=== PATIENT | male | born 1935 | race Caucasian/White ===

== ENCOUNTER 2017-01-24 07:35 | Emergency (ER) | payer MEDICARE, BC ==
[~2017-01-24] VITALS: Ht 180.3 cm; Wt 68.2 kg
[~2017-01-24 07:35] MED LIST: ATENOLOL25 MG OR; AUGMENTIN875TAB PO; CIPRO500 MG OR; CIPROFLOXACN500 MG PO; GOLYTEL1; GOLYTEL1 PO; HYDROCO/APAP1 T10 PO; INDOCIN50 MG/CAP PO; KEFLEX500 M1 PO; KEFLEX500 MG PO; LORTAB 5-325 MG1 TAB PO; NAPROSYN500 MG PO; NEOMYCIN500 MG PO; OCUVITE PO; PCE500 MG PO; PROBENECID/COLC1 TAB PO; PX ASPIRIN81 M1 PO; ROBITUSSIN AC10 ML PO; TAMSULOSIN0.4 MG PO; TENORMIN25 MG PO; TORADOL PO; ZITHROMAX250 MG PO; [UNRECOGNIZED DRUG - OTHER] PO
[2017-01-24 08:23] LABS: HEMATOCRIT 32.2 % (39.0-50.0); HEMOGLOBIN 10.8 g/dl (14.0-18.0); IMMATURE GRANULOCYTES 0.3 % (0.0-1.0); MEAN CELL VOLUME 88.7 fL CALC (80.0-100.0); MEAN CORPUSCULAR HGB 29.8 pG CALC (26.0-32.0); MEAN CORPUSCULAR HGB CONC 33.5 g/L CALC (32.0-36.0); NEUT# 9.18 thou/uL (1.82-7.42); RED BLOOD COUNT 3.63 mill/uL (4.70-6.10); RED CELL DISTRI WIDTH 13.2 % (11.5-15.5)
[2017-01-24 08:37] LABS: INFLUENZA A NONE DETECTED (NONE DETECT); INFLUENZA B NONE DETECTED (NONE DETECT)
[2017-01-24 08:41] LABS: ALBUMIN 3.7 g/dL (3.2-5.0); ALKALINE PHOSPHATASE 68 u/l (38-126); ANION GAP 15 (6-22 (CALC)); BILIRUBIN, TOTAL 1.2 mg/dL (0.0-1.4); BUN 16 mg/dL (8-23); BUN/CREATININE RATIO 13 (12-20 (CALC)); CALCIUM 8.3 mg/dL (8.4-10.2); CARBON DIOXIDE 25 mmol/l (22-30); CHLORIDE 90 mmol/l (95-108); CREATININE 1.2 mg/dL (0.7-1.3); GFR 58 ML/MIN (>=60 (CALC)); GFR FOR AFR.AMER. > 60 ML/MIN (>=60 (CALC)); GLUCOSE 117 mg/dL (82-115); POTASSIUM 3.8 mmol/l (3.5-5.1); SGOT/AST 26 u/l (19-48); SGPT/ALT 24 u/l (11-66); SODIUM 126 mmol/l (137-146); TOTAL PROTEIN 7.4 g/dL (6.3-8.2)
[2017-01-24 08:52] LABS: MYOGLOBIN 110 ng/mL (0 - 121)
[2017-01-24] MEDS ORDERED: ZITHROMAX250 MG PO (10:36)
[2017-01-24 10:49] VITALS: BP 119/53
== END 2017-01-24 11:04 | disposition home or self-care (01) ==
LOC: ED 07:35
PROVIDERS: Emergency Medicine
DX: R05 Cough (principal); R91.8 Other nonspecific abnormal finding of lung field; R09.81 Nasal congestion; R50.9 Fever, unspecified

== ENCOUNTER 2017-06-15 14:54 | Inpatient (IN) | payer MEDICARE, BC ==
[~2017-06-15] VITALS: Ht 180.3 cm; Wt 65.1 kg
[2017-06-15 16:13] LABS: URINE BILIRUBIN - DIPSTICK NEGATIVE (NEGATIVE); URINE BLOOD DIPSTICK SMALL (NEGATIVE); URINE CLARITY CLEAR; URINE COLOR YELLOW; URINE GLUCOSE - DIPSTICK NEGATIVE (NEGATIVE); URINE KETONE NEGATIVE (NEGATIVE); URINE PH 7.5 (4.5-8.0); URINE PROTEIN - DIPSTICK 30 mg/dL (NEG-TRACE); URINE UROBILINOGEN - DIPSTICK 0.2 E.U./dL (0.2)
[2017-06-15 16:16] LABS: URINE LEUK ESTERASE SMALL (NEGATIVE)
[2017-06-15 16:26] LABS: URINE NITRITE - DIPSTICK NEGATIVE (Negative)
[2017-06-15 16:27] LABS: URINE BACTERIA RARE hpf; URINE EPITHELIAL CELLS RARE EPI/hpf (0-FEW)
[2017-06-15 16:29] LABS: HEMATOCRIT 34.5 % (39.0-50.0); HEMOGLOBIN 11.5 g/dl (14.0-18.0); IMMATURE GRANULOCYTES 0.5 % (0.0-1.0); MEAN CELL VOLUME 89.6 fL CALC (80.0-100.0); MEAN CORPUSCULAR HGB 29.9 pG CALC (26.0-32.0); MEAN CORPUSCULAR HGB CONC 33.3 g/L CALC (32.0-36.0); NEUT# 19.75 thou/uL (1.82-7.42); RED BLOOD COUNT 3.85 mill/uL (4.70-6.10)
[2017-06-15 16:38] LABS: ALBUMIN 4.2 g/dL (3.2-5.0); ALKALINE PHOSPHATASE 83 u/l (38-126); ANION GAP 17 (6-22 (CALC)); BILIRUBIN, TOTAL 0.7 mg/dL (0.0-1.4); BUN 18 mg/dL (8-23); BUN/CREATININE RATIO 15 (12-20 (CALC)); CARBON DIOXIDE 28 mmol/l (22-30); CHLORIDE 95 mmol/l (95-108); CREATININE 1.2 mg/dL (0.7-1.3); GFR 58 ML/MIN (>=60 (CALC)); GFR FOR AFR.AMER. > 60 ML/MIN (>=60 (CALC)); GLUCOSE 111 mg/dL (82-115); POTASSIUM 3.8 mmol/l (3.5-5.1); SGOT/AST 23 u/l (19-48); SGPT/ALT 28 u/l (11-66); SODIUM 136 mmol/l (137-146)
[2017-06-15 19:10] LABS: HEMATOCRIT 32.7 % (39.0-50.0); HEMOGLOBIN 10.7 g/dl (14.0-18.0); IMMATURE GRANULOCYTES 0.6 % (0.0-1.0); MEAN CELL VOLUME 90.8 fL CALC (80.0-100.0); MEAN CORPUSCULAR HGB 29.7 pG CALC (26.0-32.0); MEAN CORPUSCULAR HGB CONC 32.7 g/L CALC (32.0-36.0); NEUT# 19.04 thou/uL (1.82-7.42); RED BLOOD COUNT 3.6 mill/uL (4.70-6.10)
[2017-06-15 19:29] LABS: ANION GAP 16 (6-22 (CALC)); BUN 17 mg/dL (8-23); BUN/CREATININE RATIO 17 (12-20 (CALC)); CALCIUM 8.2 mg/dL (8.4-10.2); CARBON DIOXIDE 23 mmol/l (22-30); CHLORIDE 99 mmol/l (95-108); GFR > 60 ML/MIN (>=60 (CALC)); GFR FOR AFR.AMER. > 60 ML/MIN (>=60 (CALC)); GLUCOSE 136 mg/dL (82-115); POTASSIUM 4.2 mmol/l (3.5-5.1); SODIUM 134 mmol/l (137-146)
[2017-06-15 22:00] VITALS: BP 96/49
[2017-06-16] VITALS (7 sets, daily range): BP systolic 101–129; BP diastolic 47–63
[2017-06-16 07:25] LABS: ANION GAP 17 (6-22 (CALC)); BUN 15 mg/dL (8-23); BUN/CREATININE RATIO 16 (12-20 (CALC)); CALCIUM 8.5 mg/dL (8.4-10.2); CARBON DIOXIDE 24 mmol/l (22-30); CHLORIDE 100 mmol/l (95-108); GFR > 60 ML/MIN (>=60 (CALC)); GFR FOR AFR.AMER. > 60 ML/MIN (>=60 (CALC)); GLUCOSE 88 mg/dL (82-115); POTASSIUM 4.1 mmol/l (3.5-5.1); SODIUM 137 mmol/l (137-146)
[2017-06-16 08:24] LABS: HEMATOCRIT 32.2 % (39.0-50.0); HEMOGLOBIN 10.7 g/dl (14.0-18.0); IMMATURE GRANULOCYTES 0.9 % (0.0-1.0); MEAN CELL VOLUME 89.2 fL CALC (80.0-100.0); MEAN CORPUSCULAR HGB 29.6 pG CALC (26.0-32.0); MEAN CORPUSCULAR HGB CONC 33.2 g/L CALC (32.0-36.0); NEUT# 21.81 thou/uL (1.82-7.42); RED BLOOD COUNT 3.61 mill/uL (4.70-6.10); RED CELL DISTRI WIDTH 13.2 % (11.5-15.5)
[2017-06-17 03:35] VITALS: BP 109/55
[2017-06-17 06:03] LABS: HEMATOCRIT 29.7 % (39.0-50.0); HEMOGLOBIN 9.8 g/dl (14.0-18.0); IMMATURE GRANULOCYTES 0.8 % (0.0-1.0); MEAN CELL VOLUME 90.5 fL CALC (80.0-100.0); MEAN CORPUSCULAR HGB 29.9 pG CALC (26.0-32.0); NEUT# 15.21 thou/uL (1.82-7.42); RED BLOOD COUNT 3.28 mill/uL (4.70-6.10); RED CELL DISTRI WIDTH 13.3 % (11.5-15.5)
[2017-06-17 06:14] LABS: ANION GAP 15 (6-22 (CALC)); BUN 12 mg/dL (8-23); BUN/CREATININE RATIO 13 (12-20 (CALC)); CALCIUM 8.2 mg/dL (8.4-10.2); CARBON DIOXIDE 24 mmol/l (22-30); CHLORIDE 102 mmol/l (95-108); GFR > 60 ML/MIN (>=60 (CALC)); GFR FOR AFR.AMER. > 60 ML/MIN (>=60 (CALC)); GLUCOSE 97 mg/dL (82-115); MAGNESIUM 1.9 mg/dL (1.6-2.3); SODIUM 137 mmol/l (137-146)
[2017-06-17 09:04] VITALS: BP 107/55
[2017-06-17 12:15] VITALS: BP 110/62
[2017-06-17 16:00] VITALS: BP 121/64
[2017-06-17 19:20] VITALS: BP 120/63
[2017-06-18 00:10] VITALS: BP 126/65
[2017-06-18 04:00] VITALS: BP 126/66
[2017-06-18 06:07] LABS: HEMATOCRIT 32.2 % (39.0-50.0); HEMOGLOBIN 10.5 g/dl (14.0-18.0); IMMATURE GRANULOCYTES 0.5 % (0.0-1.0); MEAN CELL VOLUME 91.2 fL CALC (80.0-100.0); MEAN CORPUSCULAR HGB 29.7 pG CALC (26.0-32.0); MEAN CORPUSCULAR HGB CONC 32.6 g/L CALC (32.0-36.0); NEUT# 9.34 thou/uL (1.82-7.42); RED BLOOD COUNT 3.53 mill/uL (4.70-6.10); RED CELL DISTRI WIDTH 13.4 % (11.5-15.5)
[2017-06-18 06:11] LABS: ALBUMIN 3.1 g/dL (3.2-5.0); ALKALINE PHOSPHATASE 67 u/l (38-126); ANION GAP 17 (6-22 (CALC)); BILIRUBIN, TOTAL 0.7 mg/dL (0.0-1.4); BUN 13 mg/dL (8-23); BUN/CREATININE RATIO 15 (12-20 (CALC)); CALCIUM 8.6 mg/dL (8.4-10.2); CARBON DIOXIDE 23 mmol/l (22-30); CHLORIDE 103 mmol/l (95-108); CREATININE 0.9 mg/dL (0.7-1.3); GFR > 60 ML/MIN (>=60 (CALC)); GFR FOR AFR.AMER. > 60 ML/MIN (>=60 (CALC)); GLUCOSE 86 mg/dL (82-115); SGOT/AST 14 u/l (19-48); SGPT/ALT 22 u/l (11-66); SODIUM 139 mmol/l (137-146); TOTAL PROTEIN 6.2 g/dL (6.3-8.2)
[2017-06-18 08:39] VITALS: BP 131/65
[2017-06-18 11:25] VITALS: BP 136/51
[2017-06-18] MEDS ORDERED: BACTRIM DS1 TAB PO (12:38)
[2017-06-18] MEDS ORDERED: ROBAXIN-750750 MG PO (12:43)
[2017-06-18] MEDS ORDERED: TRAMADOL HCL50 MG PO (12:43)
== END 2017-06-18 13:48 | disposition home or self-care (01) | DRG 872 ==
LOC: ED 14:54 → ED-I 16:55 → ED 17:30 → MS2 17:31
PROVIDERS: Emergency Medicine; Internal Medicine; Nurse Practitioner Family; ADMIT Internal Medicine; ATTEND Internal Medicine
DX: A41.9 Sepsis, unspecified organism (principal); N39.0 Urinary tract infection, site not specified; D64.9 Anemia, unspecified; E83.42 Hypomagnesemia; I12.9 Hypertensive chronic kidney disease with stage 1 through stage 4 chronic kidney disease, or unspecified chronic kidney disease; N18.9 Chronic kidney disease, unspecified; M10.9 Gout, unspecified; N40.0 Benign prostatic hyperplasia without lower urinary tract symptoms; M25.512 Pain in left shoulder; Z87.440 Personal history of urinary (tract) infections; Z87.442 Personal history of urinary calculi; Z85.038 Personal history of other malignant neoplasm of large intestine; Z90.49 Acquired absence of other specified parts of digestive tract
CPT/HCPCS: J0692; J1650

== ENCOUNTER 2017-10-10 14:30 | Emergency (ER) | payer MEDICARE, BC ==
[~2017-10-10] VITALS: Ht 180.3 cm; Wt 63.0 kg
[~2017-10-10 14:30] MED LIST changes: +BACTRIM DS1 TAB PO; +ROBAXIN-750750 MG PO; +TRAMADOL HCL50 MG PO
[2017-10-10 16:16] LABS: HEMATOCRIT 30.7 % (39.0-50.0); HEMOGLOBIN 10.3 g/dl (14.0-18.0); IMMATURE GRANULOCYTES 0.3 % (0.0-1.0); MEAN CORPUSCULAR HGB 29.2 pG CALC (26.0-32.0); MEAN CORPUSCULAR HGB CONC 33.6 g/L CALC (32.0-36.0); NEUT# 9.47 thou/uL (1.82-7.42); RED BLOOD COUNT 3.53 mill/uL (4.70-6.10); RED CELL DISTRI WIDTH 14.3 % (11.5-15.5)
[2017-10-10 16:21] LABS: INFLUENZA A NONE DETECTED (NONE DETECT); INFLUENZA B NONE DETECTED (NONE DETECT)
[2017-10-10 16:25] LABS: ALBUMIN 3.8 g/dL (3.2-5.0); ALKALINE PHOSPHATASE 72 u/l (38-126); ANION GAP 15 (6-22 (CALC)); BILIRUBIN, TOTAL 0.5 mg/dL (0.0-1.4); BUN 16 mg/dL (8-23); BUN/CREATININE RATIO 14 (12-20 (CALC)); CALCIUM 8.7 mg/dL (8.4-10.2); CARBON DIOXIDE 23 mmol/l (22-30); CHLORIDE 96 mmol/l (95-108); CREATININE 1.2 mg/dL (0.7-1.3); GFR 58 ML/MIN (>=60 (CALC)); GFR FOR AFR.AMER. > 60 ML/MIN (>=60 (CALC)); GLUCOSE 127 mg/dL (82-115); SGOT/AST 27 u/l (19-48); SGPT/ALT 23 u/l (11-66); SODIUM 130 mmol/l (137-146); TOTAL PROTEIN 7.2 g/dL (6.3-8.2)
[2017-10-10] MEDS ORDERED: KEFLEX500 M1 PO (17:34)
[2017-10-10] MEDS ORDERED: MEDDOSEPAK PO (17:34)
[2017-10-10 17:53] VITALS: BP 122/66
== END 2017-10-10 18:25 | disposition home or self-care (01) ==
LOC: ED 14:30
PROVIDERS: Emergency Medicine
DX: J20.9 Acute bronchitis, unspecified (principal); J44.0 Chronic obstructive pulmonary disease with (acute) lower respiratory infection; J44.1 Chronic obstructive pulmonary disease with (acute) exacerbation; Z91.19 Patient's noncompliance with other medical treatment and regimen; R05 Cough; R50.9 Fever, unspecified; I10 Essential (primary) hypertension; Z85.038 Personal history of other malignant neoplasm of large intestine

== ENCOUNTER 2019-03-18 09:15 | Emergency (ER) | payer MEDICARE, BC ==
[~2019-03-18] VITALS: Ht 177.8 cm; Wt 68.0 kg
[~2019-03-18 09:15] MED LIST changes: +CHILD ASA LS81 MG PO; +COLCHICINE0.6 M2 PO; +MEDDOSEPAK PO; +MOTRIN400 MG PO; +TENORMIN25 M1 PO
[2019-03-18] MEDS ORDERED: XARELTO10 MG PO (09:39)
[2019-03-18 10:20] LABS: IMMATURE GRANULOCYTES 0.6 % (0.0-5.0); MEAN CELL VOLUME 87.5 fL CALC (80.0-100.0); MEAN CORPUSCULAR HGB 26.9 pG CALC (26.0-32.0); MEAN CORPUSCULAR HGB CONC 30.8 g/L CALC (32.0-36.0); NEUT# 6.76 thou/uL (1.82-7.42); RED BLOOD COUNT 2.97 mill/uL (4.70-6.10); RED CELL DISTRI WIDTH 15.1 % (11.5-15.5)
[2019-03-18 10:37] LABS: ALBUMIN 3.3 g/dL (3.2-5.0); ALKALINE PHOSPHATASE 70 u/l (38-126); ANION GAP 13 (6-22 (CALC)); BILIRUBIN, TOTAL 0.5 mg/dL (0.0-1.4); BUN 29 mg/dL (8-23); BUN/CREATININE RATIO 32 (12-20 (CALC)); C-REACTIVE PROTEIN 2.3 mg/dL (0-0.9); CARBON DIOXIDE 28 mmol/l (22-30); CHLORIDE 98 mmol/l (95-108); CREATININE 0.9 mg/dL (0.7-1.3); GFR > 60 ML/MIN (>=60 (CALC)); GFR FOR AFR.AMER. > 60 ML/MIN (>=60 (CALC)); POTASSIUM 4.6 mmol/l (3.5-5.1); SGOT/AST 22 u/l (19-48); SODIUM 135 mmol/l (137-146); TOTAL PROTEIN 6.5 g/dL (6.3-8.2)
[2019-03-18 15:55] VITALS: BP 119/60
== END 2019-03-18 16:14 | disposition home or self-care (01) ==
LOC: ED 09:15
PROVIDERS: Emergency Medicine
DX: L03.116 Cellulitis of left lower limb (principal); I10 Essential (primary) hypertension; M25.50 Pain in unspecified joint; Z79.01 Long term (current) use of anticoagulants; Z79.52 Long term (current) use of systemic steroids; M79.605 Pain in left leg; M79.89 Other specified soft tissue disorders

== ENCOUNTER 2019-06-09 21:22 | Emergency (ER) | payer MEDICARE, BC ==
[~2019-06-09] VITALS: Ht 180.3 cm; Wt 80.0 kg
[~2019-06-09 21:22] MED LIST changes: +XARELTO10 MG PO
[2019-06-09] MEDS ORDERED: ASPIRIN 8181 MG PO (22:14)
[2019-06-09] MEDS ORDERED: MULTI COMPLETE PO (22:15)
[2019-06-09] MEDS ORDERED: NATURAL LUTEIN20 MG PO (22:15)
[2019-06-09 22:16] LABS: BASO% 0 % (0-3); EOS% 1 % (0-8); HEMATOCRIT 26.5 % (39.0-50.0); HEMOGLOBIN 8.5 g/dl (14.0-18.0); IMMATURE GRANULOCYTES 0.5 % (0.0-5.0); LYMPH% 9 % (15-41); MEAN CELL VOLUME 86.3 fL CALC (80.0-100.0); MEAN CORPUSCULAR HGB 27.7 pG CALC (26.0-32.0); MEAN CORPUSCULAR HGB CONC 32.1 g/L CALC (32.0-36.0); MONO% 5 % (2-13); NEUT# 11.54 thou/uL (1.82-7.42); NEUT% 84 % (42-76); PLATELET COUNT 240 thou/uL (130-400); RED BLOOD COUNT 3.07 mill/uL (4.70-6.10); RED CELL DISTRI WIDTH 15.1 % (11.5-15.5)
[2019-06-09 22:33] LABS: BUN 21 mg/dL (8-23); BUN/CREATININE RATIO 23 (12-20 (CALC)); CARBON DIOXIDE 31 mmol/l (22-30); CREATININE 0.9 mg/dL (0.7-1.3); GFR > 60 ML/MIN (>=60 (CALC)); GFR FOR AFR.AMER. > 60 ML/MIN (>=60 (CALC)); POTASSIUM 4.4 mmol/l (3.5-5.1); SODIUM 134 mmol/l (137-146)
[2019-06-09 22:41] LABS: ANION GAP 14 (6-22 (CALC)); CHLORIDE 93 mmol/l (95-108)
[2019-06-09] MEDS ORDERED: VOLTAREN - GENE75 MG PO (23:25)
[2019-06-09] MEDS ORDERED: BACTRIM DS1 TAB PO (23:25)
[2019-06-09 23:40] VITALS: BP 131/84
== END 2019-06-09 23:40 | disposition home or self-care (01) ==
LOC: ED 21:22
PROVIDERS: Family Medicine
DX: L03.113 Cellulitis of right upper limb (principal); I10 Essential (primary) hypertension; M10.9 Gout, unspecified

== ENCOUNTER 2019-07-16 08:48 | Emergency (ER) | payer MEDICARE, BC ==
[~2019-07-16] VITALS: Ht 180.3 cm; Wt 62.0 kg
[~2019-07-16 08:48] MED LIST changes: +ASPIRIN 8181 MG PO; +MULTI COMPLETE PO; +NATURAL LUTEIN20 MG PO; +VOLTAREN - GENE75 MG PO
[2019-07-16] MEDS ORDERED: TRAMADOL HCL50 MG PO (10:33)
[2019-07-16] MEDS ORDERED: VOLTAREN - GENE75 MG PO (10:33)
[2019-07-16 10:45] VITALS: BP 122/63
== END 2019-07-16 10:45 | disposition home or self-care (01) ==
LOC: ED 08:48
DX: M47.812 Spondylosis without myelopathy or radiculopathy, cervical region (principal); I10 Essential (primary) hypertension

== ENCOUNTER 2019-07-23 11:48 | Emergency (ER) | payer MEDICARE, BC ==
[~2019-07-23] VITALS: Ht 180.3 cm; Wt 59.1 kg
[2019-07-23 13:33] LABS: URINE BILIRUBIN - DIPSTICK NEGATIVE (NEGATIVE); URINE BLOOD DIPSTICK SMALL (NEGATIVE); URINE COLOR YELLOW; URINE GLUCOSE - DIPSTICK NEGATIVE (NEGATIVE); URINE KETONE NEGATIVE (NEGATIVE); URINE NITRITE - DIPSTICK NEGATIVE (Negative); URINE PH 6.5 (4.5-8.0); URINE PROTEIN - DIPSTICK NEGATIVE (NEG-TRACE); URINE SPECIFIC GRAVITY 1.015
[2019-07-23 13:40] LABS: URINE LEUK ESTERASE MODERATE (NEGATIVE)
[2019-07-23] MEDS ORDERED: FLEXERIL5 MG PO (14:00)
[2019-07-23] MEDS ORDERED: KEFLEX500 M1 PO (14:00)
[2019-07-23 15:05] VITALS: BP 124/62
[2019-07-24] MEDS ORDERED: LORTAB 5/3255 MG PO (18:04)
[2019-07-24] MEDS ORDERED: GABAPENTIN100 MG PO (18:04)
[2019-07-24] MEDS ORDERED: MIRALAX3350 N1 PO (18:04)
== END 2019-07-23 15:05 | disposition home or self-care (01) ==
LOC: ED 11:48
DX: M47.812 Spondylosis without myelopathy or radiculopathy, cervical region (principal); N39.0 Urinary tract infection, site not specified; I10 Essential (primary) hypertension; B96.1 Klebsiella pneumoniae [K. pneumoniae] as the cause of diseases classified elsewhere; Z85.038 Personal history of other malignant neoplasm of large intestine; Z87.442 Personal history of urinary calculi

== ENCOUNTER 2019-07-24 17:31 | Emergency (ER) | payer MEDICARE, BC ==
[~2019-07-24] VITALS: Ht 180.3 cm; Wt 81.8 kg
[~2019-07-24 17:31] MED LIST changes: +FLEXERIL5 MG PO
[2019-07-24] MEDS ORDERED: MIRALAX3350 N1 PO (18:04)
[2019-07-24] MEDS ORDERED: LORTAB 5/3255 MG PO (18:04)
[2019-07-24] MEDS ORDERED: GABAPENTIN100 MG PO (18:04)
[2019-07-24 19:00] VITALS: BP 140/65
== END 2019-07-24 19:15 | disposition home or self-care (01) ==
LOC: ED 17:31
DX: M47.812 Spondylosis without myelopathy or radiculopathy, cervical region (principal); I10 Essential (primary) hypertension

== ENCOUNTER 2019-08-28 15:56 | Emergency (ER) | payer MEDICARE, BC ==
[~2019-08-28 15:56] MED LIST changes: +GABAPENTIN100 MG PO; +LORTAB 5/3255 MG PO; +MIRALAX3350 N1 PO; +TRAZODONE HCL50 MG PO
== END 2019-08-28 16:15 | disposition left against medical advice (07) ==
LOC: ED 15:56 → LWOBS 16:15
DX: Z53.21 Procedure and treatment not carried out due to patient leaving prior to being seen by health care provider (principal)

== ENCOUNTER 2019-11-08 | Emergency (ER) | payer MEDICARE, BC ==
[2019-11-08] MEDS ORDERED: PREDNISONE5 MG PO (16:54)
[2019-11-08] MEDS ORDERED: DESYREL50 MG PO (16:55)
== END 2019-11-08 18:00 | disposition home or self-care (01) ==
PROC: 3E1B78Z Irrigation of Ear using Irrigating Substance, Via Natural or Artificial Opening (ICD-10-PCS; principal; 2019-11-08)
PROC: 3E1B78Z Irrigation of Ear using Irrigating Substance, Via Natural or Artificial Opening (ICD-10-PCS; 2019-11-08)
DX: H61.23 Impacted cerumen, bilateral (principal); I10 Essential (primary) hypertension

== ENCOUNTER 2020-10-15 12:53 | Observation (INO) | payer MEDICARE, BC ==
[~2020-10-15] VITALS: Ht 177.8 cm; Wt 110.0 kg
[~2020-10-15 12:53] MED LIST changes: +DESYREL50 MG PO; +PREDNISONE5 MG PO
[2020-10-15 14:24] LABS: HEMATOCRIT 34.5 % (39.0-50.0); HEMOGLOBIN 11.1 g/dl (14.0-18.0); IMMATURE GRANULOCYTES 0.6 % (0.0-5.0); MEAN CELL VOLUME 89.6 fL CALC (80.0-100.0); MEAN CORPUSCULAR HGB 28.8 pG CALC (26.0-32.0); MEAN CORPUSCULAR HGB CONC 32.2 g/dL CAL (32.0-36.0); NEUT# 20.37 thou/uL (1.82-7.42); RED BLOOD COUNT 3.85 mill/uL (4.70-6.10); RED CELL DISTRI WIDTH 13.2 % (11.5-15.5)
[2020-10-15 14:37] LABS: ALBUMIN 3.8 g/dL (3.2-5.0); ALKALINE PHOSPHATASE 87 u/l (38-126); AMYLASE 45 u/l (30-110); ANION GAP 10 (6-22 (CALC)); BUN 17 mg/dL (8-23); BUN/CREATININE RATIO 16 (12-20 (CALC)); CARBON DIOXIDE 26 mmol/l (22-30); CHLORIDE 98 mmol/l (95-108); GFR > 60 ML/MIN (>=60 (CALC)); GFR FOR AFR.AMER. > 60 ML/MIN (>=60 (CALC)); LIPASE 29 u/l (23-300); MAGNESIUM 1.6 mg/dL (1.6-2.3); SGOT/AST 23 u/l (19-48); SODIUM 130 mmol/l (137-146); TOTAL PROTEIN 6.9 g/dL (6.3-8.2)
[2020-10-15 14:39] LABS: ACT PARTIAL THROMBO TIME 25.1 SECONDS (20.0-32.5); INTERNATIONAL NORMALIZED RATIO 1.1 RATIO (0.7-1.3); PROTHROMBIN TIME 10.8 SECONDS (9.0-12.5)
[2020-10-15 14:41] LABS: D-DIMER 3.55 mg/L (0.19-0.60)
[2020-10-15 14:52] LABS: BILIRUBIN, TOTAL 0.8 mg/dL (0.0-1.4)
[2020-10-15 15:56] LABS: URINE BILIRUBIN - DIPSTICK NEGATIVE (NEGATIVE); URINE BLOOD DIPSTICK SMALL (NEGATIVE); URINE COLOR YELLOW; URINE GLUCOSE - DIPSTICK NEGATIVE (NEGATIVE); URINE KETONE NEGATIVE (NEGATIVE); URINE LEUK ESTERASE TRACE (NEGATIVE); URINE NITRITE - DIPSTICK NEGATIVE (Negative); URINE PROTEIN - DIPSTICK TRACE mg/dL (NEG-TRACE); URINE SPECIFIC GRAVITY 1.015
[2020-10-15 16:12] LABS: URINE RBC 0-2 RBC/hpf (0-5)
[2020-10-15 19:45] VITALS: BP 130/65
[2020-10-16] VITALS (7 sets, daily range): BP systolic 101–119; BP diastolic 46–62
[2020-10-16 07:12] LABS: HEMATOCRIT 31.2 % (39.0-50.0); HEMOGLOBIN 9.9 g/dl (14.0-18.0); IMMATURE GRANULOCYTES 0.4 % (0.0-5.0); MEAN CORPUSCULAR HGB 29.2 pG CALC (26.0-32.0); MEAN CORPUSCULAR HGB CONC 31.7 g/dL CAL (32.0-36.0); NEUT# 11.97 thou/uL (1.82-7.42); RED BLOOD COUNT 3.39 mill/uL (4.70-6.10); RED CELL DISTRI WIDTH 13.6 % (11.5-15.5)
[2020-10-16 07:30] LABS: ALKALINE PHOSPHATASE 69 u/l (38-126); BILIRUBIN, TOTAL 0.8 mg/dL (0.0-1.4); BUN 17 mg/dL (8-23); BUN/CREATININE RATIO 18 (12-20 (CALC)); CALCULATED LDLCHOLESTEROL 67 mg/dL (62-129 (CALC)); CHLORIDE 105 mmol/l (95-108); CHOLESTEROL HDL RATIO 3.5 (<4.4 (CALC)); GFR > 60 ML/MIN (>=60 (CALC)); GFR FOR AFR.AMER. > 60 ML/MIN (>=60 (CALC)); HDL CHOLESTEROL 33 mg/dL (>=40); MAGNESIUM 1.7 mg/dL (1.6-2.3); POTASSIUM 3.6 mmol/l (3.5-5.1); SGOT/AST 20 u/l (19-48); SODIUM 134 mmol/l (137-146); TOTAL CHOLESTEROL 115 mg/dl (0-199); TOTAL PROTEIN 5.6 g/dL (6.3-8.2); TOTAL TRIGLYCERIDES 72 mg/dl (30-149); VLDL CHOLESTROL 14 mg/dl (0-38 (CALC))
[2020-10-16 07:31] LABS: ALBUMIN 2.9 g/dL (3.2-5.0); ANION GAP 13 (6-22 (CALC)); CARBON DIOXIDE 20 mmol/l (22-30)
[2020-10-16] MEDS ORDERED: KEFLEX500 MG PO (13:05)
== END 2020-10-16 14:20 | disposition home health service (06) ==
LOC: ED 12:53 → ED-I 16:50 → ED 17:15 → MS2 17:16 → ED 17:26 → ED-I 17:26 → ED 17:52 → ED-I 17:52 → MS2 10-16 14:20
PROVIDERS: Nurse Practitioner; ADMIT Internal Medicine; ATTEND Internal Medicine
DX: I95.9 Hypotension, unspecified (principal); S00.81XA Abrasion of other part of head, initial encounter; N39.0 Urinary tract infection, site not specified; E87.1 Hypo-osmolality and hyponatremia; I10 Essential (primary) hypertension; M10.9 Gout, unspecified; M54.2 Cervicalgia; G89.29 Other chronic pain; M35.3 Polymyalgia rheumatica; W18.12XA Fall from or off toilet with subsequent striking against object, initial encounter; Y92.002 Bathroom of unspecified non-institutional (private) residence as the place of occurrence of the external cause; Z90.49 Acquired absence of other specified parts of digestive tract; Z87.440 Personal history of urinary (tract) infections; Z85.038 Personal history of other malignant neoplasm of large intestine; Z20.822 Contact with and (suspected) exposure to COVID-19
CPT/HCPCS: J1650; Q9967

== ENCOUNTER 2022-06-23 16:19 | Inpatient (IN) | payer MEDICARE, BC ==
[~2022-06-23] VITALS: Ht 180.3 cm; Wt 62.0 kg
--- NOTE | 2022-06-23 16:36 | NUR ---
PT IN ROOM VIA WC
[2022-06-23 17:20] LABS: ALBUMIN 3.4 g/dL (3.2-5.0); ALKALINE PHOSPHATASE 84 u/l (38-126); BUN 10 mg/dL (8-23); BUN/CREATININE RATIO 13 (12-20 (CALC)); CARBON DIOXIDE 25 mmol/l (22-30); CHLORIDE 85 mmol/l (95-108); CREATININE 0.7 mg/dL (0.7-1.3); GFR FOR AFR.AMER. > 60 ML/MIN (>=60 (CALC)); GFR OTHER RACES > 60 ML/MIN (>=60 (CALC)); HEMATOCRIT 29.9 % (39.0-50.0); HEMOGLOBIN 10.4 g/dl (14.0-18.0); IMMATURE GRANULOCYTES 0.6 % (0.0-5.0); LIPASE 45 u/l (23-300); MEAN CELL VOLUME 84.2 fL CALC (80.0-100.0); MEAN CORPUSCULAR HGB 29.3 pG CALC (26.0-32.0); MEAN CORPUSCULAR HGB CONC 34.8 g/dL CAL (32.0-36.0); NEUT# 7.21 thou/uL (1.82-7.42); POTASSIUM 4.2 mmol/l (3.5-5.1); RED BLOOD COUNT 3.55 mill/uL (4.70-6.10); RED CELL DISTRI WIDTH 12.7 % (11.5-15.5); SGOT/AST 21 u/l (19-48)
[2022-06-23 17:23] LABS: ANION GAP 12 (6-22 (CALC)); BILIRUBIN, TOTAL 0.7 mg/dL (0.0-1.4); SODIUM 118 mmol/l (137-146)
--- NOTE | 2022-06-23 17:36 | NUR ---
PER DR. VUONG, DO NOT INFUSE LITER OF 0.9% NS A BOLUS. PER DR. VUONG INFUSE 500 ML OF 1000 ML OF NS 0.9% BOLUS THEN THE REMAINDER 500 ML 50 ML/HR. WILL NOT PULL ANOTHER BAG OF NS 0.9%.
[2022-06-23 17:37] LABS: URINE BILIRUBIN - DIPSTICK NEGATIVE (NEGATIVE); URINE BLOOD DIPSTICK SMALL (NEGATIVE); URINE COLOR YELLOW; URINE GLUCOSE - DIPSTICK NEGATIVE (NEGATIVE); URINE KETONE NEGATIVE (NEGATIVE); URINE LEUK ESTERASE NEGATIVE (NEGATIVE); URINE PROTEIN - DIPSTICK NEGATIVE (NEG-TRACE); URINE SPECIFIC GRAVITY <=1.005; URINE UROBILINOGEN - DIPSTICK 0.2 E.U./dL (0.2)
[2022-06-23 17:44] LABS: URINE NITRITE - DIPSTICK NEGATIVE (Negative)
[2022-06-23 17:47] LABS: URINE MUCUS RARE hpf (NONE-FEW); URINE WBC 0-2 WBC/hpf (0-5)
--- NOTE | 2022-06-23 21:45 | NUR ---
PATIENT ADMITTED TO [facility] VIA STRETCHER TO ROOM 283. PATIENT AMBULATED SELF TO ROOM BED. ASSESSMENT COMPLETE. PATIENT ALERT AND ORIENTED. ABLE TO MAKE NEEDS KNOWN.ORIENTED TO ROOM, CALL LIGHT AND SURROUNDINGS. URINAL NEAR PATIENT. FRESH ICE WATER AT BEDSIDE. BED IN LOW POSITION. CALL LIGHT IN REACH.
[2022-06-23 21:46] VITALS: BP 129/69
[2022-06-24] VITALS (7 sets, daily range): BP systolic 108–132; BP diastolic 54–64
--- NOTE | 2022-06-24 01:00 | NUR ---
PATIENT REMAINS RESTING IN BED. REMAINS ALERT. ABLE TO MAKE NEEDS KNOWN. URINAL REMAINS IN PATIENT REACH. PATIENT HAS BEEN VOIDING THROUGHOUT SHIFT. BED REMAINS IN LOW POSITION. CALL WHITMORE IN REACH.
--- NOTE | 2022-06-24 10:47 | NUR ---
PT IS SITTING UP IN BED WITH NO DISTRESS NOTED. GAVE KEYS TO HIS SON.AND THEY CALLED HIM TO NOTIFY OF THE REASON FOR TAKING THE KEYS.VERBALIZED UNDERSTANDING.
--- NOTE | 2022-06-24 12:30 | NUR ---
PT IS RELAXING IN BED WITH NO DISTRESS NOTED. IV SITE IS FREE FROM REDNESS OR EDEMA.
[2022-06-24 12:43] LABS: ANION GAP 9 (6-22 (CALC)); BUN 12 mg/dL (8-23); BUN/CREATININE RATIO 18 (12-20 (CALC)); CARBON DIOXIDE 28 mmol/l (22-30); CHLORIDE 91 mmol/l (95-108); CREATININE 0.7 mg/dL (0.7-1.3); GFR FOR AFR.AMER. > 60 ML/MIN (>=60 (CALC)); GFR OTHER RACES > 60 ML/MIN (>=60 (CALC)); MAGNESIUM 1.5 mg/dL (1.6-2.3); POTASSIUM 4.1 mmol/l (3.5-5.1); SODIUM 124 mmol/l (137-146)
--- NOTE | 2022-06-24 16:25 | NUR ---
PT CONTINUES TO RELAX WITH NO DISTRESS NOTED. IV SITE IS FREE FROM REDNESS OR EDEMA. URINE IS GETTING BETTER HAD A FEW CLOTS. CONTINUE TO OBSERVE AND MONITOR.
--- NOTE | 2022-06-24 19:12 | NUR ---
CALLED DR BRADSHAW ABOUT CONSULTATION.
--- NOTE | 2022-06-24 20:10 | NUR ---
PT IN BED RESTING WATCHING TV. NO S/S OF DISTRESS NOTED. DENIES PAIN AT THIS TIME. ASSESMENT COMPLETED. PT HAS A 20G ON RFA INFUSING NORMAL SALINE AT 100 MLS PER HR. PT A&O X3 ABLE TO MAKE NEEDS KNOW.CALL LIGHT IN REACH AND BED IN LOWEST POSITION. CONTINUE TO MONITOR.
--- NOTE | 2022-06-25 00:50 | NUR ---
PT IN BED RESTING WITH EYES CLOSED BREATHING EVEN AND UNLABORED, NO S/S OF DISTRESS NOTED. CALL LIGHT IN REACH AND BED IN LOWEST POSITION. CONTINUE TO MONITOR
[2022-06-25 03:49] VITALS: BP 123/57
--- NOTE | 2022-06-25 04:26 | NUR ---
PT IN BED LAB AT BED SIDE. PT DENIE PAIN OR DISCOMFORT. NO S/ OF DISTRESS NOTED. CALL LIGHT IN REACH AND BED IN LOWEST POSITION.
[2022-06-25 04:58] LABS: ALBUMIN 3.5 g/dL (3.2-5.0); BUN 11 mg/dL (8-23); CARBON DIOXIDE 25 mmol/l (22-30); CHLORIDE 95 mmol/l (95-108); CREATININE 0.7 mg/dL (0.7-1.3); GFR FOR AFR.AMER. > 60 ML/MIN (>=60 (CALC)); GFR OTHER RACES > 60 ML/MIN (>=60 (CALC)); SODIUM 126 mmol/l (137-146)
[2022-06-25 06:02] VITALS: BP 134/62
--- NOTE | 2022-06-25 07:45 | NUR ---
ASSESSMENT IS COMPLETED: HR IS RG,PULSES ARE STRONG X4,A BD IS SOFT WITH ACTIVE BS. NO DISTRESS NOTED. URINE IS CLEAR YELLOW NO CLOTS CONTINUE TO OSBERVE AND MONITOR.
[2022-06-25 11:23] VITALS: BP 127/67
--- NOTE | 2022-06-25 11:30 | NUR ---
FLU SHOT GIVEN IN R ARM.
[2022-06-25 15:29] VITALS: BP 143/66
--- NOTE | 2022-06-25 16:15 | NUR ---
PT IS RELAXING IN BED
[2022-06-25 19:25] VITALS: BP 133/63
--- NOTE | 2022-06-25 20:45 | NUR ---
PT IN BED WATCHING TV NO S/S OF DISTRESS NOTED. DENIES PAIN OFR DISCOFORT AT THIS TIME. ASEMENT COMPLETED AT THIS TIME. PT HAS A 20G IV TO 20 RFA PATEMT AMD FLUSHES WELL. CALL LIGHT IN REACH AND BE DIN LOWEST POSITION.
--- NOTE | 2022-06-26 | NUR ---
PT IN BED RESTING WITH EYES CLOSED BRATHING AND UNLAVORED NO S/S OF DISTRESS NOED. CALL LIGHT IN REACH AND BED IN LKOWEST POSITION.
[2022-06-26 02:10] LABS: URINE BILIRUBIN - DIPSTICK NEGATIVE (NEGATIVE); URINE BLOOD DIPSTICK SMALL (NEGATIVE); URINE COLOR YELLOW; URINE GLUCOSE - DIPSTICK NEGATIVE (NEGATIVE); URINE KETONE NEGATIVE (NEGATIVE); URINE PH 6.5 (4.5-8.0); URINE PROTEIN - DIPSTICK NEGATIVE (NEG-TRACE); URINE SPECIFIC GRAVITY <=1.005; URINE UROBILINOGEN - DIPSTICK 0.2 E.U./dL (0.2)
[2022-06-26 02:26] LABS: URINE LEUK ESTERASE NEGATIVE (NEGATIVE); URINE NITRITE - DIPSTICK NEGATIVE (Negative)
[2022-06-26 02:27] LABS: URINE WBC 0-2 WBC/hpf (0-5)
[2022-06-26 02:28] LABS: URINE BACTERIA FEW hpf; URINE EPITHELIAL CELLS FEW EPI/hpf (0-FEW)
[2022-06-26 04:12] VITALS: BP 125/69
[2022-06-26 04:20] VITALS: BP 133/62
--- NOTE | 2022-06-26 04:41 | NUR ---
PT IN BED RESTING WITH EYES CLOSED BREATHING EVEN AND UNLABORED. NO S/S OF DISTRESS NOTED
[2022-06-26 06:09] VITALS: BP 120/68
[2022-06-26 06:54] LABS: ALBUMIN 3.3 g/dL (3.2-5.0); BUN 11 mg/dL (8-23); CARBON DIOXIDE 23 mmol/l (22-30); CHLORIDE 94 mmol/l (95-108); CREATININE 0.8 mg/dL (0.7-1.3); GFR FOR AFR.AMER. > 60 ML/MIN (>=60 (CALC)); GFR OTHER RACES > 60 ML/MIN (>=60 (CALC)); POTASSIUM 4.2 mmol/l (3.5-5.1); SODIUM 126 mmol/l (137-146)
[2022-06-26 11:24] VITALS: BP 132/69
[2022-06-26 15:17] VITALS: BP 134/59
[2022-06-26 18:40] VITALS: BP 142/70
[2022-06-27 03:33] VITALS: BP 139/60
[2022-06-27 05:29] LABS: ALBUMIN 3.3 g/dL (3.2-5.0); BUN 12 mg/dL (8-23); CARBON DIOXIDE 25 mmol/l (22-30); CHLORIDE 90 mmol/l (95-108); CREATININE 0.8 mg/dL (0.7-1.3); GFR FOR AFR.AMER. > 60 ML/MIN (>=60 (CALC)); GFR OTHER RACES > 60 ML/MIN (>=60 (CALC)); POTASSIUM 3.7 mmol/l (3.5-5.1); SODIUM 127 mmol/l (137-146)
[2022-06-27 07:49] VITALS: BP 145/68
--- NOTE | 2022-06-27 10:32 | NUR ---
PT RESTING IN HIGH FOWLERS POSITION. A/OX3 ASSESSMENT AND VS COMPLETE. PT DENIES BM . TO BE MEDICATED PER EMAR. IV SITE NOTED TO RFA. PT ON TELE.PT DENIES ADDITIONAL NEEDS AT THE TOME ALL SAFETY PRECAUTIONS IN PLACE .-
--- NOTE | 2022-06-27 13:13 | NUR ---
PT C/O NO BM YET PROVIDER ORDER FOR SUPPOSITORY TO BE ADMINISTERED.PER EMAR ONCE PT IS READY .
--- NOTE | 2022-06-27 13:43 | NUR ---
SUPPOSITORY ADMINISTERED. PT TOLERATED WELL.
--- NOTE | 2022-06-27 15:10 | NUR ---
PT BLADDER SCAN 121 PT MEDICATED WITH FLOMAX.
--- NOTE | 2022-06-27 15:15 | NUR ---
PT OUTPUT 120.
--- NOTE | 2022-06-27 15:55 | NUR ---
PT RESTING IN HIGH FOWLERS POSITION. DENIES ADDITIONAL NEEDS AT THE MOMENT ALL SAFETY PRECAUTIONS IN PLACE.
[2022-06-27 16:01] VITALS: BP 142/65
[2022-06-27 19:09] VITALS: BP 129/67
[2022-06-28 04:20] VITALS: BP 136/63
[2022-06-28 06:01] LABS: HEMOGLOBIN 11.1 g/dl (14.0-18.0); IMMATURE GRANULOCYTES 0.4 % (0.0-5.0); MEAN CORPUSCULAR HGB 29.6 pG CALC (26.0-32.0); MEAN CORPUSCULAR HGB CONC 33.6 g/dL CAL (32.0-36.0); NEUT# 4.63 thou/uL (1.82-7.42); RED BLOOD COUNT 3.75 mill/uL (4.70-6.10); RED CELL DISTRI WIDTH 13.1 % (11.5-15.5)
[2022-06-28 06:20] LABS: ALBUMIN 3.9 g/dL (3.2-5.0); ALKALINE PHOSPHATASE 82 u/l (38-126); AMYLASE 57 u/l (30-110); ANION GAP 16 (6-22 (CALC)); BILIRUBIN, TOTAL 0.6 mg/dL (0.0-1.4); BUN 11 mg/dL (8-23); BUN/CREATININE RATIO 13 (12-20 (CALC)); CARBON DIOXIDE 25 mmol/l (22-30); CHLORIDE 88 mmol/l (95-108); CREATININE 0.8 mg/dL (0.7-1.3); GFR FOR AFR.AMER. > 60 ML/MIN (>=60 (CALC)); GFR OTHER RACES > 60 ML/MIN (>=60 (CALC)); LIPASE 51 u/l (23-300); MAGNESIUM 1.8 mg/dL (1.6-2.3); POTASSIUM 4.2 mmol/l (3.5-5.1); SGOT/AST 28 u/l (19-48); SODIUM 126 mmol/l (137-146); TOTAL PROTEIN 6.6 g/dL (6.3-8.2)
[2022-06-28 07:00] VITALS: BP 138/77
--- NOTE | 2022-06-28 07:39 | NUR ---
PT A/O PT C/O PRESSURE IN BLADDER. BLADDER SCANNED 236ML. PT TO BE STRAIGHT CATHED. PT INDICATED UNDERSTANDING. PT DENIES ADDITIONAL NEEDS AT THE TIME ALL SAFETY PRECAUTIONS IN PLACE CALL LIGHT IN REACH.
--- NOTE | 2022-06-28 08:18 | NUR ---
PTURINATION OUTPUT 200. PT NO NEED FOR STRAIGHT CATH. PT TOLERATED MEDICATIONS WELL.
--- NOTE | 2022-06-28 12:55 | NUR ---
PT HAS BEEN URINATING FINE DURING THE DAY AID DOCUMENTING OUTPUTS. PT STATED URGE TO URINATE HAVING TROUBLE. PT BLADDER SCANNED 167 . PT STATES WILL TRY TO URINATE AGAIN WHILE STANDING UP AFTER LUNCH.
[2022-06-28 15:00] VITALS: BP 120/65
--- NOTE | 2022-06-28 16:12 | NUR ---
PT DENIES ANY ADDITIONAL NEEDS AT THE TIME SAFETY PRECAUTIONS IN PLACE.
[2022-06-28 19:06] VITALS: BP 123/62
[2022-06-29 04:10] VITALS: BP 114/60
[2022-06-29 06:15] LABS: ALBUMIN 3.3 g/dL (3.2-5.0); BUN 10 mg/dL (8-23); CARBON DIOXIDE 27 mmol/l (22-30); CHLORIDE 88 mmol/l (95-108); CREATININE 0.9 mg/dL (0.7-1.3); GFR FOR AFR.AMER. > 60 ML/MIN (>=60 (CALC)); GFR OTHER RACES > 60 ML/MIN (>=60 (CALC)); POTASSIUM 4.2 mmol/l (3.5-5.1); SODIUM 125 mmol/l (137-146)
[2022-06-29 06:36] VITALS: BP 124/54
[2022-06-29 07:03] VITALS: BP 125/72
--- NOTE | 2022-06-29 08:03 | NUR ---
RECIEVED REPORT. PT A/OX3. RESPIRATIONS EVEN AND UNLABORED ON ROOM AIR. LUNG SOUNDS CLEAR. HEART RHYTHM NORMAL. BOWEL SOUNDS ACTIVE. #20G RFA PATENT. SKIN INTACT. PT C/O OF BLADDER DISCOMFORT, BLADDER SCAN COMPLETED RESULTING IN 176. STRIAGHT CATH TO BE COMPLETED. FRESH COFFE PROVIDED. PT DENIES OF ANY ADDITIONAL NEEDS AT THIS TIME. ALL SAFTEY PRECAUTIONSA RE IN PLACE WITH CALL LIGHT IN REACH
--- NOTE | 2022-06-29 09:15 | NUR ---
SALES DEVELOPMENT DIRECTOR INFORMED THAT PT WAS ABLE TO VOID. BLADDER SCAMN COMPLETED AT THIS TIME RESULTING IN 74. PT STATES PRESSURE IS NO LONGER THERE. MORNING MEDS ADMINISTERED. PT TOLERATED WELL WITH APPLE SAUCE
--- NOTE | 2022-06-29 11:50 | NUR ---
PT RESTING IN SEMI FOWLERS POSITION WITH DAUGHTER AT BEDSIDE. REASPIRATIONS EVEN AND UNLABORED ON ROOM AIR. IV ABX INFUSING. PT INFORMED OF NEED IV CHANGED IF NOT DC. PT VERBLAIZED UNDERSTANDING. 300 OF CLOUDY URINE NOTED. PT DENIES OF ANY ABD DISCOMFORT. ALL SAFTEY PRECAUTIONS ARE IN PLACE WITH CALL LIGHT IN REACH
[2022-06-29] MEDS ORDERED: SOD CHLORIDE1 GM PO (14:25)
[2022-06-29] MEDS ORDERED: CIPROFLOXACN500 MG PO (14:26)
[2022-06-29 14:44] VITALS: BP 118/67
--- NOTE | 2022-06-29 15:02 | NUR ---
PT EDUCATED ON DC INSTRUICTIONS AND NEW MEDCATIONS. VERBLAIZED UNDERSTANDING. IV REMOVED WITH CATH INTACT. TRANSPORTATION CALLED
[2022-06-29 15:47] VITALS: BP 118/67
--- NOTE | 2022-06-29 15:58 | NUR ---
Discharge instructions given. Patient verbalizes understanding of same. Discharged in stable condition via Wheelchair to Home with *Other. All belongings sent with pt.
== END 2022-06-29 15:45 | disposition home health service (06) | DRG 641 ==
LOC: ED 16:19 → ED-I 16:51 → ED 16:51 → ED-I 19:05 → ED 20:55 → MS2 20:55
PROVIDERS: Family Medicine; Internal Medicine Nephrology; ADMIT Internal Medicine; ATTEND Internal Medicine
DX: E87.1 Hypo-osmolality and hyponatremia (principal); N40.1 Benign prostatic hyperplasia with lower urinary tract symptoms; R35.0 Frequency of micturition; N39.43 Post-void dribbling; E83.42 Hypomagnesemia; D64.9 Anemia, unspecified; I10 Essential (primary) hypertension; M10.9 Gout, unspecified; M35.3 Polymyalgia rheumatica; N41.9 Inflammatory disease of prostate, unspecified; K59.00 Constipation, unspecified; Z85.038 Personal history of other malignant neoplasm of large intestine; Z23 Encounter for immunization; Z90.49 Acquired absence of other specified parts of digestive tract; Z87.440 Personal history of urinary (tract) infections; Z87.442 Personal history of urinary calculi; Z20.822 Contact with and (suspected) exposure to COVID-19
CPT/HCPCS: J1650; J3475; Q9967

== ENCOUNTER 2022-07-28 19:13 | Inpatient (IN) | payer MEDICARE, BC ==
[~2022-07-28] VITALS: Ht 180.3 cm; Wt 56.1 kg
[~2022-07-28 19:13] MED LIST changes: +SOD CHLORIDE1 GM PO
[2022-07-28 19:38] VITALS: BP 122/68
[2022-07-28 19:45] VITALS: BP 130/63
[2022-07-28 20:15] LABS: HEMATOCRIT 29.7 % (39.0-50.0); IMMATURE GRANULOCYTES 0.2 % (0.0-5.0); MEAN CELL VOLUME 85.8 fL CALC (80.0-100.0); MEAN CORPUSCULAR HGB 28.9 pG CALC (26.0-32.0); MEAN CORPUSCULAR HGB CONC 33.7 g/dL CAL (32.0-36.0); NEUT# 9.07 thou/uL (1.82-7.42); RED BLOOD COUNT 3.46 mill/uL (4.70-6.10); URINE BILIRUBIN - DIPSTICK NEGATIVE (NEGATIVE); URINE BLOOD DIPSTICK MODERATE (NEGATIVE); URINE COLOR YELLOW; URINE GLUCOSE - DIPSTICK NEGATIVE (NEGATIVE); URINE KETONE NEGATIVE (NEGATIVE); URINE LEUK ESTERASE NEGATIVE (NEGATIVE); URINE PH 7.5 (4.5-8.0); URINE PROTEIN - DIPSTICK NEGATIVE (NEG-TRACE); URINE UROBILINOGEN - DIPSTICK 0.2 E.U./dL (0.2)
[2022-07-28 20:17] LABS: URINE NITRITE - DIPSTICK NEGATIVE (Negative)
[2022-07-28 20:22] LABS: URINE WBC 0-2 WBC/hpf (0-5)
[2022-07-28 20:26] LABS: BUN 10 mg/dL (8-23); BUN/CREATININE RATIO 12 (12-20 (CALC)); CARBON DIOXIDE 26 mmol/l (22-30); CHLORIDE 82 mmol/l (95-108); CREATININE 0.8 mg/dL (0.7-1.3); GFR FOR AFR.AMER. > 60 ML/MIN (>=60 (CALC)); GFR OTHER RACES > 60 ML/MIN (>=60 (CALC)); POTASSIUM 4.5 mmol/l (3.5-5.1)
[2022-07-28 20:30] LABS: ANION GAP 11 (6-22 (CALC)); SODIUM 114 mmol/l (137-146)
[2022-07-28 20:50] VITALS: BP 113/53
[2022-07-28 21:08] LABS: MYOGLOBIN 67 ng/mL (0 - 121)
[2022-07-28 21:25] VITALS: BP 125/69
[2022-07-28 22:51] VITALS: BP 111/53
[2022-07-29] VITALS (8 sets, daily range): BP systolic 106–135; BP diastolic 54–64
[2022-07-29 05:32] LABS: HEMATOCRIT 27.6 % (39.0-50.0); HEMOGLOBIN 9.4 g/dl (14.0-18.0); MEAN CELL VOLUME 86.8 fL CALC (80.0-100.0); MEAN CORPUSCULAR HGB 29.6 pG CALC (26.0-32.0); MEAN CORPUSCULAR HGB CONC 34.1 g/dL CAL (32.0-36.0); RED BLOOD COUNT 3.18 mill/uL (4.70-6.10)
[2022-07-29 06:13] LABS: BUN 9 mg/dL (8-23); BUN/CREATININE RATIO 12 (12-20 (CALC)); CARBON DIOXIDE 23 mmol/l (22-30); CHLORIDE 89 mmol/l (95-108); CREATININE 0.7 mg/dL (0.7-1.3); GFR FOR AFR.AMER. > 60 ML/MIN (>=60 (CALC)); GFR OTHER RACES > 60 ML/MIN (>=60 (CALC)); MAGNESIUM 1.7 mg/dL (1.6-2.3); POTASSIUM 4.4 mmol/l (3.5-5.1)
[2022-07-29 06:18] LABS: ANION GAP 10 (6-22 (CALC)); SODIUM 118 mmol/l (137-146)
[2022-07-30] VITALS (7 sets, daily range): BP systolic 124–145; BP diastolic 62–72
[2022-07-30 05:08] LABS: HEMATOCRIT 29.7 % (39.0-50.0); MEAN CELL VOLUME 87.1 fL CALC (80.0-100.0); MEAN CORPUSCULAR HGB 29.3 pG CALC (26.0-32.0); MEAN CORPUSCULAR HGB CONC 33.7 g/dL CAL (32.0-36.0); RED BLOOD COUNT 3.41 mill/uL (4.70-6.10)
[2022-07-30 05:28] LABS: BUN 12 mg/dL (8-23); BUN/CREATININE RATIO 15 (12-20 (CALC)); CARBON DIOXIDE 24 mmol/l (22-30); CHLORIDE 98 mmol/l (95-108); CREATININE 0.8 mg/dL (0.7-1.3); GFR FOR AFR.AMER. > 60 ML/MIN (>=60 (CALC)); GFR OTHER RACES > 60 ML/MIN (>=60 (CALC)); MAGNESIUM 1.7 mg/dL (1.6-2.3); POTASSIUM 4.4 mmol/l (3.5-5.1)
[2022-07-30 05:29] LABS: ANION GAP 8 (6-22 (CALC)); SODIUM 126 mmol/l (137-146)
[2022-07-31 04:00] VITALS: BP 136/72
[2022-07-31 04:20] VITALS: BP 136/72
[2022-07-31 05:34] LABS: HEMATOCRIT 28.6 % (39.0-50.0); HEMOGLOBIN 9.7 g/dl (14.0-18.0); IMMATURE GRANULOCYTES 0.2 % (0.0-5.0); MEAN CELL VOLUME 86.7 fL CALC (80.0-100.0); MEAN CORPUSCULAR HGB 29.4 pG CALC (26.0-32.0); MEAN CORPUSCULAR HGB CONC 33.9 g/dL CAL (32.0-36.0); NEUT# 4.16 thou/uL (1.82-7.42); RED BLOOD COUNT 3.3 mill/uL (4.70-6.10)
[2022-07-31 05:40] LABS: ANION GAP 8 (6-22 (CALC)); BUN 11 mg/dL (8-23); BUN/CREATININE RATIO 15 (12-20 (CALC)); CARBON DIOXIDE 23 mmol/l (22-30); CHLORIDE 98 mmol/l (95-108); CREATININE 0.8 mg/dL (0.7-1.3); GFR FOR AFR.AMER. > 60 ML/MIN (>=60 (CALC)); GFR OTHER RACES > 60 ML/MIN (>=60 (CALC)); POTASSIUM 4.2 mmol/l (3.5-5.1); SODIUM 124 mmol/l (137-146)
[2022-07-31 07:14] VITALS: BP 165/83
[2022-07-31 14:28] VITALS: BP 150/83
[2022-07-31 19:16] VITALS: BP 133/65
[2022-08-01 00:07] VITALS: BP 137/71
[2022-08-01 04:26] VITALS: BP 127/68
[2022-08-01 05:44] LABS: ALBUMIN 3.1 g/dL (3.2-5.0); BUN 12 mg/dL (8-23); CARBON DIOXIDE 23 mmol/l (22-30); CHLORIDE 96 mmol/l (95-108); CREATININE 0.7 mg/dL (0.7-1.3); GFR FOR AFR.AMER. > 60 ML/MIN (>=60 (CALC)); GFR OTHER RACES > 60 ML/MIN (>=60 (CALC)); POTASSIUM 4.3 mmol/l (3.5-5.1); SODIUM 126 mmol/l (137-146)
[2022-08-01 06:40] VITALS: BP 132/64
[2022-08-01 07:49] VITALS: BP 131/62
[2022-08-01 07:50] VITALS: BP 131/62
[2022-08-01] MEDS ORDERED: SOD CHLORIDE1 GM PO (11:57)
== END 2022-08-01 13:58 | disposition home health service (06) | DRG 641 ==
LOC: ED 19:13 → ED-I 20:50 → ED 21:03 → MS2 21:04
PROVIDERS: Family Medicine; Internal Medicine; Internal Medicine Nephrology; ADMIT Internal Medicine; ATTEND Internal Medicine
DX: E87.1 Hypo-osmolality and hyponatremia (principal); S00.01XA Abrasion of scalp, initial encounter; S51.011A Laceration without foreign body of right elbow, initial encounter; I10 Essential (primary) hypertension; M35.3 Polymyalgia rheumatica; R35.0 Frequency of micturition; R39.15 Urgency of urination; D64.9 Anemia, unspecified; W18.39XA Other fall on same level, initial encounter; Y92.238 Other place in hospital as the place of occurrence of the external cause; Z87.442 Personal history of urinary calculi; Z85.038 Personal history of other malignant neoplasm of large intestine; Z90.49 Acquired absence of other specified parts of digestive tract; Z91.81 History of falling; Z87.440 Personal history of urinary (tract) infections
CPT/HCPCS: G0378; J1650; J2060

== ENCOUNTER 2022-12-19 09:04 | Inpatient (IN) | payer MEDICARE, BC ==
[2022-12-19] VITALS (55 sets, daily range): BP systolic 93–124; BP diastolic 43–62
[~2022-12-19] VITALS: Ht 180.3 cm; Wt 68.3 kg
--- NOTE | 2022-12-19 09:04 | NUR ---
PATIENT TO ROOM VIA EMS, GRAND-DAUGHTER AT BEDSIDE. SHE IS EMERGENCY CONTACT
[2022-12-19 09:58] LABS: ALBUMIN 3.1 g/dL (3.2-5.0); TOTAL PROTEIN 6.1 g/dL (6.3-8.2)
[2022-12-19 10:04] LABS: HEMATOCRIT 28.5 % (39.0-50.0); HEMOGLOBIN 9.5 g/dl (14.0-18.0); IMMATURE GRANULOCYTES 0.9 % (0.0-5.0); MANUAL DIFFERENTIAL YES; MEAN CELL VOLUME 86.4 fL CALC (80.0-100.0); MEAN CORPUSCULAR HGB 28.8 pG CALC (26.0-32.0); MEAN CORPUSCULAR HGB CONC 33.3 g/dL CAL (32.0-36.0); PLATELET COUNT 151 thou/uL (130-400); RED CELL DISTRI WIDTH 13.3 % (11.5-15.5)
[2022-12-19 10:06] LABS: BAND 2 % (0-8); BILIRUBIN, TOTAL 0.8 mg/dL (0.2-1.3); CREATININE 2.2 mg/dL (0.7-1.3); PLATELET ESTIMATE NORMAL; POTASSIUM 5.6 mmol/l (3.5-5.1)
--- NOTE | 2022-12-19 10:08 | NUR ---
SON AT BEDSIDE. Reassessment of patient completed. No distress noted.
--- NOTE | 2022-12-19 11:06 | NUR ---
Reassessment of patient completed. No distress noted. SON AT BEDSIDE
--- NOTE | 2022-12-19 11:46 | NUR ---
BLADDER SCAN SHOWED PATIENT HAD <5 ML OF URINE IN BLADDER. PROVIDED PATIENT A WATER TO HYDRATE.
--- NOTE | 2022-12-19 12:26 | NUR ---
STRAIGHT CATH. NO URINE COLLECTED FROM BLADDER. NOTIFIED AND AWARE
--- NOTE | 2022-12-19 13:45 | NUR ---
one to one care provided. new linen and condom catheter in place.
--- NOTE | 2022-12-19 14:10 | NUR ---
Reassessment of patient completed. No distress noted.
--- NOTE | 2022-12-19 15:30 | NUR ---
Reassessment of patient completed. No distress noted.
[2022-12-19 15:37] LABS: URINE BLOOD DIPSTICK LARGE (NEGATIVE); URINE COLOR YELLOW; URINE GLUCOSE - DIPSTICK 100 mg/dL (NEGATIVE); URINE KETONE TRACE mg/dL (NEGATIVE); URINE PROTEIN - DIPSTICK >=300 mg/dL (NEG-TRACE)
[2022-12-19 15:40] LABS: URINE BILIRUBIN - DIPSTICK SMALL (NEGATIVE); URINE LEUK ESTERASE MODERATE (NEGATIVE); URINE NITRITE - DIPSTICK NEGATIVE (Negative)
[2022-12-19 15:51] LABS: URINE BACTERIA MANY hpf; URINE SQUAMOUS EPITHELIAL CELL FEW EPI/hpf (0-FEW); URINE WBC TNTC WBC/hpf (0-5)
--- NOTE | 2022-12-19 16:04 | NUR ---
Reassessment of patient completed. No distress noted.
--- NOTE | 2022-12-19 17:56 | NUR ---
PATIENT RESTING IN BED WITH EYES CLOSED
--- NOTE | 2022-12-19 18:45 | NUR ---
PATIENT ADJUSTED IN BED. PROVIDED A DINNER TRAY/
--- NOTE | 2022-12-19 18:55 | NUR ---
Reassessment of patient completed. No distress noted.
--- NOTE | 2022-12-19 19:15 | NUR ---
VERBAL REPORT RIECIVED FROM LAKISHA ULRICH. PATIENT SITTING UP IN THE BED EATING AWAITING ADMISSION.
--- NOTE | 2022-12-19 20:15 | NUR ---
VERBAL REPORT CALLED TO AINSLEY RODRÍGUEZ RN/DOUGH RAISER. SBAR REVIEWED. TELEMETRY BOX IN PLACE AND PATIENT AWAITNG TRANSFER TO MED SURG.PATIENT IN NO DISTRESS
--- NOTE | 2022-12-19 20:42 | NUR ---
PT ARRIVES TO UNIT FROM ED ON STRETCHER ACCOMPANIED BY WOLF VALENTIN AND JULIETTE VALENTIN. PT SLID OVER ONTO BED AND POSITIONED FOR COMFORT. ADMISSION ASSESMENT COMPLETED. PLAN OF CARE REVIEWED. PT DECLINES OFFER FOR FOOD, ACCEPTS OFFER FOR JUICE AND WATER. SITTING UP DRINKING. SEE E-MAR FOR MEDICATION ADMINISTRATION. PT ASKS FOR PUDDING WITH PO MEDICATIONS. R-AC 18G INFUSING NS @ 100ML/H. TELE #1 ON PT. NSR 70'S-80'S. BED LOCKED IN LOW POSITION WITH BEDRAILS UP X2. CALL WHITMORE WITHIN REACH, AGREES TO CALL PRN. Jorge RODRÍGUEZ RN ASSIGNED PT'S PRIMARY NURSE. REPORT ENDORSED TO Jorge RODRÍGUEZ AT BEDSIDE.
[2022-12-20] VITALS (8 sets, daily range): BP systolic 99–136; BP diastolic 45–75
--- NOTE | 2022-12-20 | NUR ---
PATIENT RESTING IN BED, WITH EYES CLOSED, BREATHING EVEN UNLABORED, CALL LIGHT IN REACH, BED ALARM IN PLACE.
--- NOTE | 2022-12-20 04:02 | NUR ---
BLADDER NOT DISTENDED, PATIENT HAS A CRESPO CATHETER URINE OUTPUT 50CC, BLADDER SCANNED PATIENT 14CC AT THIS TIME.
[2022-12-20 05:29] LABS: HEMATOCRIT 25.5 % (39.0-50.0); HEMOGLOBIN 8.4 g/dl (14.0-18.0); MEAN CELL VOLUME 86.1 fL CALC (80.0-100.0); MEAN CORPUSCULAR HGB 28.4 pG CALC (26.0-32.0); MEAN CORPUSCULAR HGB CONC 32.9 g/dL CAL (32.0-36.0); RED BLOOD COUNT 2.96 mill/uL (4.70-6.10); RED CELL DISTRI WIDTH 13.5 % (11.5-15.5)
[2022-12-20 05:56] LABS: ALBUMIN 2.5 g/dL (3.2-5.0); CREATININE 3.1 mg/dL (0.7-1.3); MAGNESIUM 1.9 mg/dL (1.6-2.3); TOTAL PROTEIN 5.3 g/dL (6.3-8.2)
[2022-12-20 06:12] LABS: BILIRUBIN, TOTAL 0.4 mg/dL (0.2-1.3)
--- NOTE | 2022-12-20 06:16 | NUR ---
MD MADE AWARE PATIENT URINE OUTPUT 75CC, NEHEMIAH IN COLOR, NEW ORDER BOLUS NS 1LITER NOW, SENT TO PHARMACY.
--- NOTE | 2022-12-20 08:00 | NUR ---
PT SITTING UP IN BED HIGH FOWLERS AWAKE, ALERT AND ORIENTED. PT HAS NO C/O PAIN A THIS TIME. PT TELE ON AND INTACT WITH NEHEMIAH COLORED URINE IN BAG, WILL CONTINUE TO MONITOR OUTPUT. PT IV SITE TO RAC CLEAN AND INTACT WITH NS @ 100 ML/HR. PT HAS CALL LIGHT WITHIN REACH AND ALL SAFETY MEASURES IN PLACE.
--- NOTE | 2022-12-20 12:00 | NUR ---
PT IN BED HOB UP AT HIGH FOWLERS. PT HAS NO C/O PAIN AT THIS ITME. PT CONT TO HAVE NS 100 ML/HR. PT CRESPO INTACT WITH URINE IN BAG NEHEMIAH COLORED. PT HAS NO CHANGE IN STATUS AT THIS TIME
--- NOTE | 2022-12-20 15:30 | NUR ---
PT WITH 120 ML NEHEMIAH URINE IN CRESPO BAG. I INFORMED DR. GAXIOLA OF PT AMOUNT OF OUTPUT SINCE THIS MORNING. DR. GAXIOLA STATES ONLY TO CONTINUE TO MONITOR PT AT THIS TIME.
--- NOTE | 2022-12-20 16:04 | NUR ---
PT IN BED WITH HOB UP, HIGH FOWLERS RESTING WITH EYES CLOSED. PT CONTINUES TO HAVE NS @100ML/HR TO RAC. WILL CONTINUE TO MONITOE URINE OUTPUT. CALL LIGHT WITHIN REACH ALL SAFETHY MEAUSURES IN PLACE.
--- NOTE | 2022-12-20 18:28 | NUR ---
PT CRESPO EMPTIED WITH 150 ML OUTPUT. CONTINUES TO HAVE 100 ML/ HR INFUSING. PT HAS NO EDEMA AND LUNGS CLEAR. DR. BRADSHAW AWARE AND ORDER GIVEN TO DECREASE FLUIDS FOR 50 ML/HR. ORDER WRITTEN AND FAXED TO AFTER HOURS PHARMACY.
--- NOTE | 2022-12-20 20:00 | NUR ---
RECEIVED REPORT FROM NURSE EMILY, PATIENT RESTING IN BED, EYES CLOSED ON HIGH FOWLERS PER PATIENTS PREFERENCE, BREATHING EVEN UNLABORED, OCCASIONAL COUGH NOTED, IV ON RAC G 18 NS AT 50CC/HR, HOOKED ON TELEMETRY, ACTIVE BOWEL SOUNDS LBM 12/20, EDEMA NOTED ON LEFT ARM ELEVATED WITH PILLOW, PATIENT HAS INDWELLING CRESPO CATHETER DRAINING YELLOW COLORED URINE, BED ALARM IN PLACE, CALL LIGHT IN REACH.
--- NOTE | 2022-12-21 00:22 | NUR ---
PATINT IN BED, EYES CLOSED, BREATHING EVEN UNLABORED, NOT IN DISTRESS CALLLIGHT IN REACH.
--- NOTE | 2022-12-21 03:25 | NUR ---
PATIENT AWAKE AT THIS TIME, REQUESTED APPLE JUICE, STATED DRY MOUTH, DRESSING ON IV CHANGED, PATENT FLUSHES WELL, PATIENT ARM ELEVATED WITH PILLOW, PATIENT WENT BACK TO SLEEP, CALL LIGHT IN REACH.
[2022-12-21 04:14] VITALS: BP 110/55
[2022-12-21 05:48] LABS: HEMATOCRIT 25.2 % (39.0-50.0); HEMOGLOBIN 8.4 g/dl (14.0-18.0); MEAN CELL VOLUME 87.8 fL CALC (80.0-100.0); MEAN CORPUSCULAR HGB 29.3 pG CALC (26.0-32.0); MEAN CORPUSCULAR HGB CONC 33.3 g/dL CAL (32.0-36.0); RED BLOOD COUNT 2.87 mill/uL (4.70-6.10); RED CELL DISTRI WIDTH 13.5 % (11.5-15.5)
[2022-12-21 05:53] LABS: ALBUMIN 2.2 g/dL (3.2-5.0); CREATININE 3.8 mg/dL (0.7-1.3); POTASSIUM 4.9 mmol/l (3.5-5.1)
[2022-12-21 07:08] VITALS: BP 118/65
--- NOTE | 2022-12-21 08:00 | NUR ---
PT SITTING UP IN BED WITH HOB UP, PT IS AWAKE, ALERT AND ORIENTED. IV SITE TO RAC CLEAN AND INTACT WITH NS @ 50 ML/HR INFUSING. TELE ON WITH ALL LEADS ATTACHED. CRESPO PATENT AND DRAINING CLEAR, YELLOW URINE. PT HAS CALL LIGHT WITHIN REACH AND ALL SAFETY MEASURES IN PLACE.
[2022-12-21 08:30] VITALS: BP 122/62
--- NOTE | 2022-12-21 11:36 | NUR ---
Attempted treatment ant 1025, her reported being sore all over and refuse treatment at this time.
--- NOTE | 2022-12-21 12:03 | NUR ---
Pt resting in bed, he c/o soreness all over and not feeling well. He refused treatment at this time.
--- NOTE | 2022-12-21 12:39 | NUR ---
PT STTING UP IN BED WITH FAMILY MEMBER AT BEDSIDE. PT HAS NO C/O PAIN AT THIS ITME. LIQUET AT BEDSIDE AND DECREASED NS TO 30 ML/HR. PT HAS CLEAR, YELLOW URINE IN CRESPO BAG. CALL LIGHT WITHIN REACH.
[2022-12-21 15:24] VITALS: BP 112/61
--- NOTE | 2022-12-21 16:00 | NUR ---
PT IN BED WITH HOB IN HIGH FOWLERS. RESTING WITH EYES CLOSED AT THIS TIME. PT HAS NO CHANGE IN STATUS AT THIS TIME. PT HAS CALL LIGHT WITHIN REACH AND ALL SAFETY MEASURES IN PLACE
--- NOTE | 2022-12-21 19:40 | NUR ---
PATIENT RESTING IN BED WITH HOB ELEVATED. ALERT AND ABLE TO MAKE NEEDS KNOWN. NO COMPLAINTS VOICED. NO DISTRESS NOTED. ASSESSMENT COMPLETE. DENIES NEEDING ANYTHING. CRESPO PATENT DRAINING YELLOW URINE. BED REMAINS IN LOW POSITION. CALL WHITMORE IN REACH.
[2022-12-21 19:58] VITALS: BP 126/74
--- NOTE | 2022-12-21 23:50 | NUR ---
PATIENT SLEEPING WITH HOB ELEVATED. NO COMPLAINTS VOICED. NO DISTRESS NOTED. CRESPO REMAINS PATENT DRAINING CLEAR YELLOW URINE. BED REMAINS IN LOW POSITION. CALL WHITMORE IN REACH.
[2022-12-21 23:54] VITALS: BP 124/65
[2022-12-22] VITALS (7 sets, daily range): BP systolic 112–133; BP diastolic 58–69
--- NOTE | 2022-12-22 04:37 | NUR ---
PATIENT RESTING IN BED WITH HOB ELEVATED. NO COMPLAINTS VOICED AT THIS TIME. BED REMAINS IN LOW POSITION. CALL WHITMORE AND BELONGINGS IN REACH.
--- NOTE | 2022-12-22 05:13 | NUR ---
checked patient @0400 for a bowel movement. patient was dry.
--- NOTE | 2022-12-22 05:50 | NUR ---
ATTEMPTED TO FIX DRESSING ON PATIENTS LEFT ELBOW. PATIENT WANTED ARMS TO BE LEFT ALONE FOR NOW. WILL INFORM ONCOMING NURSE.
--- NOTE | 2022-12-22 08:00 | NUR ---
PT IN BED WITH HOB AT HIGH FOWLERS AT PT REQUEST. PT IS ALERT AND OREINTED WITH C/O BILAT SHOULDER PAIN AT 8/10 ON PAIN SCALE, TYLENOL GIVEN ORDERED. PT REFUSES TO EAT ANY BREAKFAST, REQUESTING A BOOST AND GIVEN. IV SITE TO RAC INTACT WITH NS @ 30 ML/HR INFUSING. CRESPO DRAINING CLEAR YELLOW URINE AT THIS TIME WITH 75 ML OUT AT THIS TIME. NON PITTING EDEMA NOTES TO BILAT ARMS. PT HAS CALL LIGHT WITHIN REACH AND ALL SAFETY MEASURES IN PLACE AT THIS TIME.
[2022-12-22 08:42] LABS: HEMATOCRIT 26.8 % (39.0-50.0); HEMOGLOBIN 8.8 g/dl (14.0-18.0); MEAN CELL VOLUME 86.7 fL CALC (80.0-100.0); MEAN CORPUSCULAR HGB 28.5 pG CALC (26.0-32.0); MEAN CORPUSCULAR HGB CONC 32.8 g/dL CAL (32.0-36.0); RED BLOOD COUNT 3.09 mill/uL (4.70-6.10); RED CELL DISTRI WIDTH 13.3 % (11.5-15.5)
[2022-12-22 08:55] LABS: ALBUMIN 2.3 g/dL (3.2-5.0); CREATININE 4.3 mg/dL (0.7-1.3); MAGNESIUM 1.9 mg/dL (1.6-2.3); TOTAL PROTEIN 4.9 g/dL (6.3-8.2)
[2022-12-22 09:06] LABS: BILIRUBIN, TOTAL 0.2 mg/dL (0.2-1.3); POTASSIUM 5.4 mmol/l (3.5-5.1)
--- NOTE | 2022-12-22 09:15 | NUR ---
REASSES PT SHOULDER PAIN AND NOW AT 5/[address] CASTRO ORDERED ULTRAM, PT REFUSES AT THIS TIME AND STATES HE WOULD LIKE TO WAIT. WILL CONTINUE TO MONITOR. CALL LIGHT WITHIN REACH.
--- NOTE | 2022-12-22 11:43 | NUR ---
Pt ID verified. Pt refused OT treatment due to pain and fatigue. Pt resting with call trotter within reach.
--- NOTE | 2022-12-22 12:00 | NUR ---
PT IN BED RESTING WITH HOB UP, PT STATES PRN MEDICATION FOR PAIN WAS EFFECTIVE, PAIN IN SHOULDERS AT A 4 ON PAIN SCALE AT THIS TIME. IV FLUIDS STOPPED PER ORDER. URINE IN CRESPO BAG CLEAR, YELLOW WITH 550ML TOTAL OUT AT THIS TIME. PT HAS CALL LIGHT WTIHIN REACH.
--- NOTE | 2022-12-22 16:00 | NUR ---
PT IN BED WITH BED IN HIGH FOWLERS. PT AWAKE, ALERT AND ORIENTED. PT HAS NO C/O PAIN AT THIS TIME. PT CRESPO CONTINUES TO DRAIN CLEAR, YELLOW URINE. CALL LIGHT WITHIN REACH AND ALL SAFETY MEASURES IN PLACE AT THIS TIME.
[2022-12-23] VITALS (7 sets, daily range): BP systolic 118–138; BP diastolic 57–71
--- NOTE | 2022-12-23 06:21 | NUR ---
2000- Pt SR W 1st degree avb [id number] 2400 Pt SR W 1st degree avb HR 61
[2022-12-23 07:33] LABS: BASO% 0.2 % (0-3); EOS% 2.1 % (0-8); HEMATOCRIT 25.5 % (39.0-50.0); HEMOGLOBIN 8.3 g/dl (14.0-18.0); IMMATURE GRANULOCYTES 0.6 % (0.0-5.0); LYMPH% 11.6 % (15-41); MEAN CELL VOLUME 86.4 fL CALC (80.0-100.0); MEAN CORPUSCULAR HGB 28.1 pG CALC (26.0-32.0); MEAN CORPUSCULAR HGB CONC 32.5 g/dL CAL (32.0-36.0); MONO% 6.5 % (2-13); NEUT# 7.37 thou/uL (1.82-7.42); RED BLOOD COUNT 2.95 mill/uL (4.70-6.10); RED CELL DISTRI WIDTH 13.3 % (11.5-15.5)
--- NOTE | 2022-12-23 07:48 | NUR ---
RECIEVED REPORT FROM PM RN. PT RESTING IN BED, ALL SAFETY MEASURES IN PLACE. NO NEEDS AT THIS TIME.
[2022-12-23 08:27] LABS: ALBUMIN 2.3 g/dL (3.2-5.0); BILIRUBIN, TOTAL 0.2 mg/dL (0.2-1.3); CREATININE 4.5 mg/dL (0.7-1.3); MAGNESIUM 1.9 mg/dL (1.6-2.3); TOTAL PROTEIN 4.7 g/dL (6.3-8.2)
[2022-12-23 08:33] LABS: POTASSIUM 5.7 mmol/l (3.5-5.1)
[2022-12-23 14:54] LABS: CREATININE 4.6 mg/dL (0.7-1.3)
[2022-12-23 14:56] LABS: POTASSIUM 5.5 mmol/l (3.5-5.1)
--- NOTE | 2022-12-23 20:31 | NUR ---
RECIEVED REPORT. PT A/OX3. RESPIRATIONS EVEN AND UNLABORED ON ROOM AIR. LUNG SOUNDS DIMINISHED IN LOWER LOBES. HEART RHYTHM NORMAL WITH TELE IN PLACE. BOWEL SOUNDS ACTIVE. PT REPORTS HAVING NO APPATITE BUT LIKES ENSURE. #20G RAC PATENT. SKIN INTACT, SCATTERED NICKS NOTED THROUGHOUT BODY. REDNESS NOTED TO BUTTOCKS AND SPINE, Q2H TURNING ENCOURAGED. CRESPO CATH DRAINING PER GRVITY, CLEAR YELLOW URINE NOTED. PT DENIES OF ANY PAINS. PT ORIENTED TO ROOM AND CALL LIGHT SYSTEM. ALL SAFTEY PRECAUTIONS ARE IN PLACE WITH CALL LIGHT IN REACH.
[2022-12-24] VITALS (7 sets, daily range): BP systolic 117–143; BP diastolic 52–66
--- NOTE | 2022-12-24 00:02 | NUR ---
PT SLEEPING IN SEMI FOWLERS POSITION. RESPIRATIONS EVEN AND UNLABORED ON ROOM AIR. TELE MONITORING IN PLACE #20G RAC NOTED. CRESPO CATH DRAINING PER GRAVITY, TUBING FREE OF KINKS. NO SIGNS OF DISTRESS. ALL SAFTEY PRECAUTIONS ARE IN PLACE WITH CALL LIGHT IN REACH
--- NOTE | 2022-12-24 04:21 | NUR ---
PT SLEEPING IN SEMI FOWLELRS POSITION. RESPIRATIONS EVEN AND UNLABORED ON ROOM AIR. #20G RAC NOTED. CRESPO DRAINING PER GRAVITY, FREE OF KINKS. NO SIGNS OF ANY DISTRSS. ALL SAFTEY PERCAUTIONS ARE IN PLACE WITH CALL LIGHT IN REACH
[2022-12-24 06:00] LABS: ALBUMIN 2.4 g/dL (3.2-5.0); CREATININE 4.7 mg/dL (0.7-1.3)
[2022-12-24 06:58] LABS: POTASSIUM 5.5 mmol/l (3.5-5.1)
--- NOTE | 2022-12-24 07:02 | NUR ---
DR ZAVALETA INFORMED OF CRITICAL BUN.
--- NOTE | 2022-12-24 07:50 | NUR ---
PT SLEEPING IN BED. VITAL SIGNS STABLE. NO FURTHER NEEDS AT THIS TIME.
--- NOTE | 2022-12-24 11:53 | NUR ---
PT RESTING COMFORTABLY. VITAL SIGNS STABLE. FAMILY IN ROOM. NO NEEDS AT THIS TIME.
--- NOTE | 2022-12-24 16:34 | NUR ---
PT SLEEPING IN BED. VITAL SIGNS STABLE. NO NEEDS AT THIS TIME.
--- NOTE | 2022-12-24 22:19 | NUR ---
RECEIVED PATIENT IN BED. RESTING IN BED. TURNED AND REPOSITIONED. NO S/S OF DISTRESS NOTED. CALL LIGHT IN REACH.
[2022-12-25] VITALS (9 sets, daily range): BP systolic 109–138; BP diastolic 49–63
[2022-12-25 05:38] LABS: HEMATOCRIT 25.2 % (39.0-50.0); HEMOGLOBIN 8.5 g/dl (14.0-18.0); MEAN CORPUSCULAR HGB CONC 33.7 g/dL CAL (32.0-36.0); RED BLOOD COUNT 2.93 mill/uL (4.70-6.10); RED CELL DISTRI WIDTH 13.3 % (11.5-15.5)
[2022-12-25 06:04] LABS: ALBUMIN 2.3 g/dL (3.2-5.0); CREATININE 4.7 mg/dL (0.7-1.3); TOTAL PROTEIN 4.6 g/dL (6.3-8.2)
[2022-12-25 06:26] LABS: BILIRUBIN, TOTAL 0.1 mg/dL (0.2-1.3); POTASSIUM 5.5 mmol/l (3.5-5.1)
--- NOTE | 2022-12-25 06:34 | NUR ---
RECEIVED A CRITICAL BUN 108 FROM LAB, PATIENT NURSE MADE AWARE.
--- NOTE | 2022-12-25 08:00 | NUR ---
PATIENT RESTING IN BED. REPORTS NO PAIN. FAMILY AT BEDSIDE. ASSESSMENT DONE.
--- NOTE | 2022-12-25 12:00 | NUR ---
PATIENT REPORTS NO PAIN. OFFERED TO REPOSITION PATIENT STATED FEELING COMFORTABLE AT THIS TIME. PATIENT WANTING TO SLEEP. WILL CONTINUE TO MONITOR.
--- NOTE | 2022-12-25 16:19 | NUR ---
PATIENT RESTING CRESPO CHECKED FOR PROPER PLACEMENT AND FOR KINKS. PATIENT REPORTS NO PAIN. WILL CONTINUE TO MONITOR.
--- NOTE | 2022-12-25 19:19 | NUR ---
REPORT RECEIVED FROM Kevin CHOW RN
--- NOTE | 2022-12-25 20:45 | NUR ---
PATIENT RESTING COMFORTABLY, NO APARRENT DISTRESS NOTED. CRESPO DRAINING CLEAR URINE TO GRAVITY. PATIENT HAD LARGE INCOTINENT STOOL AT THIS TIME BEDSIDE TABLE AND CALL LIGHT WIHTIN REACH. BED ALARM ON FOR SAFETY.
--- NOTE | 2022-12-26 | NUR ---
PATIENT RESTING COMOFRTABLY, NO APPRETN DISTRESS NOTED. RESPIRATIONS EVEN AND UNLABORED. RISE AND FALL OF CHEST NOTED. CALL LIGHT AND BEDSIDE TABLE WITHIN REACH. BED ALARM ON FOR SAFETY.
[2022-12-26 00:03] VITALS: BP 127/59
[2022-12-26 04:26] VITALS: BP 141/61
[2022-12-26 05:58] LABS: HEMATOCRIT 23.4 % (39.0-50.0); HEMOGLOBIN 7.8 g/dl (14.0-18.0); MEAN CORPUSCULAR HGB CONC 33.3 g/dL CAL (32.0-36.0); RED BLOOD COUNT 2.69 mill/uL (4.70-6.10); RED CELL DISTRI WIDTH 13.2 % (11.5-15.5)
[2022-12-26 06:07] LABS: ALBUMIN 2.3 g/dL (3.2-5.0); CREATININE 4.5 mg/dL (0.7-1.3); TOTAL PROTEIN 4.7 g/dL (6.3-8.2)
--- NOTE | 2022-12-26 06:15 | NUR ---
PATIENT MEDICATED FOR PAIN 8/10 ON RIGHT SHOULDER. RESPOSIOTNED OFFLOADING WEIGHT ON THIS SHOULDER. PATIENT STATES HE WAS ATTEMPTING TO WAIT OUT THE PAIN. PATIENT ADVISED TO NOT WAIT UNTIL PAIN GETS VERY BAD TO ASK FOR MEDICATION. CALL LIGHT AND BEDSIDE TABLE WITHIN REACH.
[2022-12-26 06:26] LABS: POTASSIUM 5.3 mmol/l (3.5-5.1)
[2022-12-26 06:35] VITALS: BP 131/60
[2022-12-26] MEDS ORDERED: TRAMADOL HCL50 MG PO (10:48)
[2022-12-26] MEDS ORDERED: LOKELMA10 GM PO (10:48)
--- NOTE | 2022-12-26 14:10 | NUR ---
Discharge instructions given. Patient verbalizes understanding of same. Discharged in stable condition via Medical Transport to [facility]. All belongings sent with pt. Espinosa catheter left in place. PIV removed due to leaking. Heart monitor removed.
--- NOTE | 2022-12-26 14:41 | NUR ---
TWO ATTEMPTS DONE TO GIVE NURSE TO NURSE REPORT TO [facility] NO ONE ANSWERED THE PHONE. MUSHROOM PRESS OPERATOR NOTIFIED.
== END 2022-12-26 14:25 | DRG 871 ==
LOC: ED 09:04 → ED-I 15:02 → ED 15:14 → MS2 15:15
PROVIDERS: Family Medicine; Internal Medicine Nephrology; Nurse Practitioner Family; ADMIT Internal Medicine; ATTEND Internal Medicine
DX: A41.9 Sepsis, unspecified organism (principal); N17.0 Acute kidney failure with tubular necrosis; M62.82 Rhabdomyolysis; E87.1 Hypo-osmolality and hyponatremia; I24.8 Other forms of acute ischemic heart disease; E87.20 Acidosis, unspecified; N39.0 Urinary tract infection, site not specified; E86.0 Dehydration; R65.20 Severe sepsis without septic shock; D64.9 Anemia, unspecified; E83.39 Other disorders of phosphorus metabolism; E87.5 Hyperkalemia; E86.1 Hypovolemia; I10 Essential (primary) hypertension; M35.3 Polymyalgia rheumatica; N40.0 Benign prostatic hyperplasia without lower urinary tract symptoms; M10.9 Gout, unspecified; B96.1 Klebsiella pneumoniae [K. pneumoniae] as the cause of diseases classified elsewhere; Z87.442 Personal history of urinary calculi; Z87.440 Personal history of urinary (tract) infections; Z85.038 Personal history of other malignant neoplasm of large intestine; Z20.822 Contact with and (suspected) exposure to COVID-19
CPT/HCPCS: J1644

== ENCOUNTER 2023-01-15 20:34 | Emergency (ER) | payer MEDICARE, BC ==
[~2023-01-15] VITALS: Ht 180.3 cm; Wt 58.0 kg
[2023-01-15] VITALS (14 sets, daily range): BP systolic 99–129; BP diastolic 55–75
[~2023-01-15 20:34] MED LIST changes: +LOKELMA10 GM PO
[2023-01-15 21:18] LABS: BASO% 0.2 % (0-3); HEMATOCRIT 28.8 % (39.0-50.0); HEMOGLOBIN 9.4 g/dl (14.0-18.0); IMMATURE GRANULOCYTES 0.3 % (0.0-5.0); LYMPH% 10.4 % (15-41); MEAN CELL VOLUME 88.6 fL CALC (80.0-100.0); MEAN CORPUSCULAR HGB 28.9 pG CALC (26.0-32.0); MEAN CORPUSCULAR HGB CONC 32.6 g/dL CAL (32.0-36.0); MONO% 5.2 % (2-13); NEUT# 9.63 thou/uL (1.82-7.42); NEUT% 83.9 % (42-76); RED BLOOD COUNT 3.25 mill/uL (4.70-6.10); RED CELL DISTRI WIDTH 14.3 % (11.5-15.5)
[2023-01-15 21:33] LABS: ALBUMIN 3.8 g/dL (3.2-5.0); BILIRUBIN, TOTAL 0.7 mg/dL (0.2-1.3); CREATININE 1.4 mg/dL (0.7-1.3); POTASSIUM 4.7 mmol/l (3.5-5.1); TOTAL PROTEIN 7.5 g/dL (6.3-8.2)
[2023-01-15 21:54] LABS: URINE BILIRUBIN - DIPSTICK NEGATIVE (NEGATIVE); URINE BLOOD DIPSTICK MODERATE (NEGATIVE); URINE COLOR YELLOW; URINE GLUCOSE - DIPSTICK NEGATIVE (NEGATIVE); URINE KETONE NEGATIVE (NEGATIVE); URINE LEUK ESTERASE NEGATIVE (NEGATIVE); URINE PROTEIN - DIPSTICK TRACE mg/dL (NEG-TRACE); URINE UROBILINOGEN - DIPSTICK 0.2 E.U./dL (0.2)
[2023-01-15 21:55] LABS: URINE NITRITE - DIPSTICK NEGATIVE (Negative)
[2023-01-15 22:05] LABS: URINE BACTERIA FEW hpf; URINE SQUAMOUS EPITHELIAL CELL FEW EPI/hpf (0-FEW)
[2023-01-15] MEDS ORDERED: MIRALAX17 GM PO (23:58)
[2023-01-16 00:16] VITALS: BP 113/63
== END 2023-01-16 00:38 | disposition home or self-care (01) ==
LOC: ED 20:34
PROVIDERS: Family Medicine
PROC: 0T9B70Z Drainage of Bladder with Drainage Device, Via Natural or Artificial Opening (ICD-10-PCS; principal; 2023-01-15)
DX: R10.33 Periumbilical pain (principal); I10 Essential (primary) hypertension; Z87.442 Personal history of urinary calculi; Z85.038 Personal history of other malignant neoplasm of large intestine; Z90.49 Acquired absence of other specified parts of digestive tract

== ENCOUNTER 2023-01-18 11:17 | Observation (INO) | payer MEDICARE, BC ==
[2023-01-18] VITALS (25 sets, daily range): BP systolic 87–120; BP diastolic 44–68
[~2023-01-18] VITALS: Ht 180.3 cm; Wt 59.0 kg
[~2023-01-18 11:17] MED LIST changes: +MIRALAX17 GM PO
[2023-01-18 12:04] LABS: BASO% 0.1 % (0-3); HEMATOCRIT 24.9 % (39.0-50.0); HEMOGLOBIN 8.2 g/dl (14.0-18.0); IMMATURE GRANULOCYTES 0.3 % (0.0-5.0); LYMPH% 7.1 % (15-41); MEAN CELL VOLUME 87.4 fL CALC (80.0-100.0); MEAN CORPUSCULAR HGB 28.8 pG CALC (26.0-32.0); MEAN CORPUSCULAR HGB CONC 32.9 g/dL CAL (32.0-36.0); MONO% 4.8 % (2-13); NEUT# 12.71 thou/uL (1.82-7.42); NEUT% 87.7 % (42-76); RED BLOOD COUNT 2.85 mill/uL (4.70-6.10); RED CELL DISTRI WIDTH 14.3 % (11.5-15.5)
[2023-01-18 13:04] LABS: ALBUMIN 3.1 g/dL (3.2-5.0); ALKALINE PHOSPHATASE 74 u/l (38-126); ANION GAP 11 (6-22 (CALC)); BILIRUBIN, TOTAL 0.3 mg/dL (0.2-1.3); BUN 32 mg/dL (8-23); BUN/CREATININE RATIO 25 (12-20 (CALC)); CARBON DIOXIDE 24 mmol/l (22-30); CHLORIDE 93 mmol/l (95-108); CREATININE 1.3 mg/dL (0.7-1.3); GFR FOR AFR.AMER. > 60 ML/MIN (>=60 (CALC)); GFR OTHER RACES 52 ML/MIN (>=60 (CALC)); POTASSIUM 4.5 mmol/l (3.5-5.1); SGOT/AST 25 u/l (19-48); SODIUM 123 mmol/l (137-146); TOTAL PROTEIN 6.3 g/dL (6.3-8.2)
[2023-01-18 15:12] LABS: URINE BILIRUBIN - DIPSTICK NEGATIVE (NEGATIVE); URINE BLOOD DIPSTICK MODERATE (NEGATIVE); URINE COLOR YELLOW; URINE GLUCOSE - DIPSTICK NEGATIVE (NEGATIVE); URINE KETONE NEGATIVE (NEGATIVE); URINE LEUK ESTERASE NEGATIVE (NEGATIVE); URINE PROTEIN - DIPSTICK NEGATIVE (NEG-TRACE); URINE SPECIFIC GRAVITY <=1.005; URINE UROBILINOGEN - DIPSTICK 0.2 E.U./dL (0.2)
[2023-01-18 15:13] LABS: URINE NITRITE - DIPSTICK NEGATIVE (Negative)
[2023-01-18 15:28] LABS: URINE WBC 0-2 WBC/hpf (0-5)
[2023-01-19] VITALS (7 sets, daily range): BP systolic 101–136; BP diastolic 47–75
[2023-01-19 05:52] LABS: HEMATOCRIT 24.8 % (39.0-50.0); HEMOGLOBIN 8.2 g/dl (14.0-18.0); MEAN CORPUSCULAR HGB 28.8 pG CALC (26.0-32.0); MEAN CORPUSCULAR HGB CONC 33.1 g/dL CAL (32.0-36.0); RED BLOOD COUNT 2.85 mill/uL (4.70-6.10); RED CELL DISTRI WIDTH 14.5 % (11.5-15.5)
[2023-01-19 06:18] LABS: ALBUMIN 2.9 g/dL (3.2-5.0); ALKALINE PHOSPHATASE 108 u/l (38-126); ANION GAP 9 (6-22 (CALC)); BILIRUBIN, TOTAL 0.2 mg/dL (0.2-1.3); BUN 28 mg/dL (8-23); BUN/CREATININE RATIO 25 (12-20 (CALC)); CARBON DIOXIDE 23 mmol/l (22-30); CHLORIDE 98 mmol/l (95-108); CREATININE 1.1 mg/dL (0.7-1.3); GFR FOR AFR.AMER. > 60 ML/MIN (>=60 (CALC)); GFR OTHER RACES > 60 ML/MIN (>=60 (CALC)); MAGNESIUM 1.5 mg/dL (1.6-2.3); POTASSIUM 3.6 mmol/l (3.5-5.1); SGOT/AST 37 u/l (19-48); SODIUM 126 mmol/l (137-146)
[2023-01-20] VITALS (7 sets, daily range): BP systolic 104–120; BP diastolic 49–75
[2023-01-20 06:05] LABS: ALBUMIN 3.1 g/dL (3.2-5.0); ALKALINE PHOSPHATASE 70 u/l (38-126); ANION GAP 8 (6-22 (CALC)); BUN 23 mg/dL (8-23); BUN/CREATININE RATIO 23 (12-20 (CALC)); CARBON DIOXIDE 27 mmol/l (22-30); CHLORIDE 95 mmol/l (95-108); GFR FOR AFR.AMER. > 60 ML/MIN (>=60 (CALC)); GFR OTHER RACES > 60 ML/MIN (>=60 (CALC)); POTASSIUM 3.8 mmol/l (3.5-5.1); SGOT/AST 27 u/l (19-48); SODIUM 127 mmol/l (137-146); TOTAL PROTEIN 6.2 g/dL (6.3-8.2)
[2023-01-20 06:17] LABS: BASO% 0.2 % (0-3); HEMATOCRIT 26.6 % (39.0-50.0); HEMOGLOBIN 8.6 g/dl (14.0-18.0); IMMATURE GRANULOCYTES 0.2 % (0.0-5.0); LYMPH% 17.4 % (15-41); MEAN CELL VOLUME 87.5 fL CALC (80.0-100.0); MEAN CORPUSCULAR HGB 28.3 pG CALC (26.0-32.0); MEAN CORPUSCULAR HGB CONC 32.3 g/dL CAL (32.0-36.0); MONO% 6.8 % (2-13); NEUT# 6.32 thou/uL (1.82-7.42); NEUT% 75.4 % (42-76); RED BLOOD COUNT 3.04 mill/uL (4.70-6.10); RED CELL DISTRI WIDTH 14.3 % (11.5-15.5)
[2023-01-20 06:20] LABS: BILIRUBIN, TOTAL 0.1 mg/dL (0.2-1.3); MAGNESIUM 2.4 mg/dL (1.6-2.3)
[2023-01-21] VITALS (7 sets, daily range): BP systolic 103–124; BP diastolic 52–56
[2023-01-21 05:41] LABS: HEMATOCRIT 27.4 % (39.0-50.0); MEAN CELL VOLUME 87.3 fL CALC (80.0-100.0); MEAN CORPUSCULAR HGB 28.7 pG CALC (26.0-32.0); MEAN CORPUSCULAR HGB CONC 32.8 g/dL CAL (32.0-36.0); RED BLOOD COUNT 3.14 mill/uL (4.70-6.10); RED CELL DISTRI WIDTH 14.3 % (11.5-15.5)
[2023-01-21 05:43] LABS: ALKALINE PHOSPHATASE 64 u/l (38-126); ANION GAP 9 (6-22 (CALC)); BUN 19 mg/dL (8-23); BUN/CREATININE RATIO 20 (12-20 (CALC)); CARBON DIOXIDE 27 mmol/l (22-30); CHLORIDE 96 mmol/l (95-108); CREATININE 0.9 mg/dL (0.7-1.3); GFR FOR AFR.AMER. > 60 ML/MIN (>=60 (CALC)); GFR OTHER RACES > 60 ML/MIN (>=60 (CALC)); POTASSIUM 4.1 mmol/l (3.5-5.1); SGOT/AST 22 u/l (19-48); SODIUM 128 mmol/l (137-146)
[2023-01-21 05:59] LABS: BILIRUBIN, TOTAL 0.2 mg/dL (0.2-1.3)
[2023-01-21] MEDS ORDERED: LINZESS145 MCG PO (11:25)
== END 2023-01-21 15:14 ==
LOC: ED 11:17 → ED-I 15:49 → ED 16:11 → MS2 16:12
PROVIDERS: Family Medicine; Nurse Practitioner Family; ADMIT Internal Medicine; ATTEND Internal Medicine
DX: K59.00 Constipation, unspecified (principal); E87.1 Hypo-osmolality and hyponatremia; N32.89 Other specified disorders of bladder; E83.42 Hypomagnesemia; I10 Essential (primary) hypertension; M35.3 Polymyalgia rheumatica; D64.9 Anemia, unspecified; N13.30 Unspecified hydronephrosis; G89.29 Other chronic pain; Z90.49 Acquired absence of other specified parts of digestive tract; Z87.442 Personal history of urinary calculi; Z85.038 Personal history of other malignant neoplasm of large intestine; Z87.440 Personal history of urinary (tract) infections; Z20.822 Contact with and (suspected) exposure to COVID-19
CPT/HCPCS: J1650; J3475; Q9967

== ENCOUNTER 2023-07-01 22:18 | Observation (INO) | payer MEDICARE, BC ==
[~2023-07-01] VITALS: Ht 180.3 cm; Wt 54.6 kg
[~2023-07-01 22:18] MED LIST changes: +LINZESS145 MCG PO; +LORTAB5 PO; +LUTEIN20 MG PO; +PROTONIX40 M2 PO
[2023-07-01 22:29] VITALS: BP 109/52
--- NOTE | 2023-07-01 22:29 | NUR ---
PT BROUGHT BACK TO RM 6 VIA WHEELCHAIR WITH SON PRESENT. PT C/O PRESSURE AND PAIN IN PELVIC AND BLADDER. STATES THEY HAVE BEEN UNABLE TO URINATE SINCE 1700 TODAY. VSS. NO S/S OF DISTRESS.
[2023-07-01 22:45] VITALS: BP 119/63
--- NOTE | 2023-07-01 22:47 | NUR ---
BLADDER SCAN COMPLETED SHOWING 49ML THE HIGHEST RESIDUAL IN BLADDER. NOTIFIED PROVIVDER.
[2023-07-01 23:00] VITALS: BP 115/57
[2023-07-01 23:15] VITALS: BP 135/60
[2023-07-01 23:37] LABS: BASO% 0.3 % (0-3); EOS% 0.9 % (0-8); HEMATOCRIT 29.9 % (39.0-50.0); HEMOGLOBIN 9.5 g/dl (14.0-18.0); IMMATURE GRANULOCYTES 0.6 % (0.0-5.0); LYMPH% 24.7 % (15-41); MEAN CELL VOLUME 90.3 fL CALC (80.0-100.0); MEAN CORPUSCULAR HGB 28.7 pG CALC (26.0-32.0); MEAN CORPUSCULAR HGB CONC 31.8 g/dL CAL (32.0-36.0); MONO% 6.7 % (2-13); NEUT# 4.45 thou/uL (1.82-7.42); NEUT% 66.8 % (42-76); RED BLOOD COUNT 3.31 mill/uL (4.70-6.10); RED CELL DISTRI WIDTH 16.1 % (11.5-15.5)
--- NOTE | 2023-07-01 23:58 | NUR ---
FLUIDS ADMINISTERING PER EMAR. PT GIVEN URINAL IF NEEDED. VSS. NO S/S OF DISTRESS.
[2023-07-02 00:02] LABS: ALBUMIN 3.4 g/dL (3.2-5.0); ALKALINE PHOSPHATASE 98 u/l (38-126); ANION GAP 12 (6-22 (CALC)); BILIRUBIN, TOTAL 0.5 mg/dL (0.2-1.3); BUN 17 mg/dL (8-23); BUN/CREATININE RATIO 20 (12-20 (CALC)); CARBON DIOXIDE 27 mmol/l (22-30); CHLORIDE 91 mmol/l (95-108); CREATININE 0.8 mg/dL (0.7-1.3); GFR FOR AFR.AMER. > 60 ML/MIN (>=60 (CALC)); GFR OTHER RACES > 60 ML/MIN (>=60 (CALC)); POTASSIUM 4.3 mmol/l (3.5-5.1); SGOT/AST 34 u/l (19-48); SODIUM 126 mmol/l (137-146); TOTAL PROTEIN 6.5 g/dL (6.3-8.2)
--- NOTE | 2023-07-02 01:20 | NUR ---
PT HAS STILL NOT BEEN ABLE TO URINATE. PT CURRENTLY LAYING HIGH FOWLERS IN STR, RESTING COMFORTABLY AT THIS TIME. VSS. NO S/S OF DISTRESS.
--- NOTE | 2023-07-02 02:51 | NUR ---
HELPED ASSIST PT TO BATHROOM, PT WAS ABLE TO URINATE AND STATES "I FEEL LIKE I EMPTIED MY BLADDER, IT FEELS BETTER" HELPED ASSIST PT BACK INTO RM AND HOOKED BACK UP TO MONITOR. VSS. NO S/S OF DISTRESS.
--- NOTE | 2023-07-02 03:38 | NUR ---
REPORT CALLED TO JANE MOLINA ON [facility]. PT TRANSFERRING TO [facility] RM 273. PT TRANSFERRED VIA HIS OWN WHEELCHAIR. NO TELE.
[2023-07-02 03:43] LABS: BASO% 0.5 % (0-3); EOS% 1.2 % (0-8); HEMATOCRIT 26.7 % (39.0-50.0); HEMOGLOBIN 8.5 g/dl (14.0-18.0); IMMATURE GRANULOCYTES 0.7 % (0.0-5.0); MEAN CELL VOLUME 89.9 fL CALC (80.0-100.0); MEAN CORPUSCULAR HGB 28.6 pG CALC (26.0-32.0); MEAN CORPUSCULAR HGB CONC 31.8 g/dL CAL (32.0-36.0); MONO% 6.7 % (2-13); NEUT# 4.32 thou/uL (1.82-7.42); NEUT% 71.9 % (42-76); RED BLOOD COUNT 2.97 mill/uL (4.70-6.10)
[2023-07-02 03:58] LABS: ALKALINE PHOSPHATASE 84 u/l (38-126); ANION GAP 7 (6-22 (CALC)); BILIRUBIN, TOTAL 0.4 mg/dL (0.2-1.3); BUN 14 mg/dL (8-23); BUN/CREATININE RATIO 18 (12-20 (CALC)); CARBON DIOXIDE 26 mmol/l (22-30); CHLORIDE 98 mmol/l (95-108); CREATININE 0.8 mg/dL (0.7-1.3); GFR FOR AFR.AMER. > 60 ML/MIN (>=60 (CALC)); GFR OTHER RACES > 60 ML/MIN (>=60 (CALC)); POTASSIUM 3.9 mmol/l (3.5-5.1); SGOT/AST 27 u/l (19-48); SODIUM 127 mmol/l (137-146); TOTAL PROTEIN 5.4 g/dL (6.3-8.2)
[2023-07-02 04:00] LABS: ALBUMIN 2.6 g/dL (3.2-5.0)
--- NOTE | 2023-07-02 04:00 | NUR ---
PT ARRIVE TO ROOM 273 VIA WHEELCHAIR ACCOMPANIED BY SURESH MEJÍA. PT HAS HIS OWN WHEELCHAIR, AND IS LABEL. PT TRANSFERED TO BED X1 ASSIST. PT IS A&OX3 ABLE TO MAKE NEEDS KNOW. PT IS AT ROOM AIR. IV TO LAC #22G INFUSING NS AT 150ML/HR. PT EYES NOTED MILD REDNESS WITH DISCHARGE EYES CLEAN WITH A WET WASHCLOT. LUNG ARE CLEAR. WOUND NOTED TO MID AND RIGHT BUTTOCKS. PT STATES [facility] IS DOING WOUND CARE. PHOTOS IN PT CHART. EDEMA NOTED TO BILATERAL LOWER EXTREMITIES +2, MAT HOSE APPLIED. NO S/S OF DISTRESS NOTED, BREATHING IS EVEN AND UNLABORED. NO NEEDS OR CONCERNS VOICED AT HTIS TIME. CALL LIGHT IN REACH AND BED IN LOWEST POSITION.
[2023-07-02 04:02] VITALS: BP 134/76
--- NOTE | 2023-07-02 04:15 | NUR ---
PT ASSITED TO BSC PT VOID 200. U/A SEND TO LAB. PT ASSITRED BACK TO BED. CALL LIGHT IN REACH AND BED IN LOWSET POSITION.
[2023-07-02 05:45] LABS: URINE BILIRUBIN - DIPSTICK Negative (NEGATIVE); URINE BLOOD DIPSTICK Trace (NEGATIVE); URINE COLOR Yellow; URINE GLUCOSE - DIPSTICK Negative (NEGATIVE); URINE KETONE Negative (NEGATIVE); URINE LEUK ESTERASE Negative (NEGATIVE); URINE NITRITE - DIPSTICK Negative (Negative); URINE PROTEIN - DIPSTICK Negative (NEG-TRACE); URINE SPECIFIC GRAVITY 1.015; URINE UROBILINOGEN - DIPSTICK 0.2 E.U./dL (0.2)
[2023-07-02 06:38] VITALS: BP 136/75
--- NOTE | 2023-07-02 07:49 | NUR ---
BEDSIDE SHIFT REPORT, PT AWAKE ALERT AND ORIENTED RESTING IN BED, REQUEST ASSISTANCE TO BSC AT THIS TIME AND NURSE ASSISTED, NO C/O DISCOMFORT, CALL WHITMORE IN REACH AND BED LOCKED IN LOWEST POSITION.
--- NOTE | 2023-07-02 13:54 | NUR ---
Discharge instructions given. Patient verbalizes understanding of same. Discharged in fair condition via Wheelchair to Home with family. All belongings sent with pt.
== END 2023-07-02 13:52 | disposition home health service (06) ==
LOC: ED 22:18 → ED-I 07-02 00:57 → ED 07-02 01:33 → MS2 07-02 01:34
PROVIDERS: Family Medicine; ADMIT Student in an Organized Health Care Education/Training Program; ATTEND Student in an Organized Health Care Education/Training Program
DX: E86.0 Dehydration (principal); R33.9 Retention of urine, unspecified; E87.1 Hypo-osmolality and hyponatremia; M35.3 Polymyalgia rheumatica; N18.9 Chronic kidney disease, unspecified; Z90.49 Acquired absence of other specified parts of digestive tract; Z85.038 Personal history of other malignant neoplasm of large intestine; Z23 Encounter for immunization; Z87.440 Personal history of urinary (tract) infections

== ENCOUNTER 2024-04-11 11:03 | Inpatient (IN) | payer MEDICARE, BC ==
[~2024-04-11] VITALS: Ht 180.3 cm; Wt 51.0 kg
[~2024-04-11 11:03] MED LIST changes: +ASPIRIN 81 LOW81 MG PO; -ASPIRIN 8181 MG PO; +DEXAMETHASONE4 MG/M1 IV; +NYSTOP100000 UNI TOP; +PIPER/TAZOBA1 IN1 IV
--- NOTE | 2024-04-11 11:50 | NUR ---
PT ARRIVES AT 1130 FROM [facility]. PT IA DIRECT ADMIT FOR PNUEMONIA AND UTI. PT IS AOX2 PT IS MORE CONFUSED THAN NORMAL PER GRAND DAUGHTER. PT IS NON AMBULATORY WITH BOOT ON LEFT FOOT AND FALL SOCK ON RIGHT FOOT. PT HAS MULTIPLE WOUNDS IN HEALING STAGES. PT DRESSINGS HAVE ALL BEEN CHANGED AND PHOTOS TAKEN BY6 NURSING STAFF TODAY. PT DID HAVE WOUND ON HIS MID SPINE WITH A DRESSING THAT APPEARS TO HAVE BEEN ON THERE FOR A FEW DAY WOUND ALSO AD FOUL ODOR TO IT. PT LSO COMES WITH AN OSTOMY WHICH WAS LEAKING AND WE CHANGED, CRESPO, AND PEG TUBE FOR FEEDING. PT IS NOW CLEAN RY AND COMFORTABLE PT HAS CALL LIGHT IN REACH AND NO COMPLAINTS AT THIS TIME
[2024-04-11 11:52] VITALS: BP 118/58
[2024-04-11] MEDS ORDERED: LORazepam 0.5 MG/TAB PO PRN (12:50)
[2024-04-11] MEDS ORDERED: SODIUM CHLORIDE 0.9% 10 ML SYR IV PRN (12:50)
[2024-04-11] MEDS ORDERED: ACETAMINOPHEN 325 MG/TAB PO PRN (12:50)
[2024-04-11] MEDS ORDERED: Polyethylene Glycol 3350 17 GM/PKT PO PRN (12:50)
[2024-04-11] MEDS ORDERED: ALUM & MAG HYDROX-SIMETHICONE 30 ML PO PRN (12:50)
[2024-04-11] MEDS ORDERED: oxyCODONE 10MG/APAP 325 MG 1 COMBO TAB PO PRN (12:55)
[2024-04-11 14:28] LABS: BASO% 0.1 % (0-3); HEMATOCRIT 25.9 % (39.0-50.0); HEMOGLOBIN 7.8 g/dl (14.0-18.0); IMMATURE GRANULOCYTES 0.7 % (0.0-5.0); LYMPH% 5.6 % (15-41); MEAN CELL VOLUME 94.9 fL CALC (80.0-100.0); MEAN CORPUSCULAR HGB 28.6 pG CALC (26.0-32.0); MEAN CORPUSCULAR HGB CONC 30.1 g/dL CAL (32.0-36.0); MONO% 2.8 % (2-13); NEUT# 20.58 thou/uL (1.82-7.42); NEUT% 90.8 % (42-76); RED BLOOD COUNT 2.73 mill/uL (4.70-6.10); RED CELL DISTRI WIDTH 14.8 % (11.5-15.5)
[2024-04-11 14:30] VITALS: BP 97/49
[2024-04-11 14:48] LABS: ALBUMIN 2.8 g/dL (3.2-5.0); CREATININE 1.1 mg/dL (0.7-1.3); TOTAL PROTEIN 6.5 g/dL (6.3-8.2)
[2024-04-11 14:49] LABS: BILIRUBIN, TOTAL 0.3 mg/dL (0.2-1.3); POTASSIUM 5.5 mmol/l (3.5-5.1)
[2024-04-11] MEDS ORDERED: fentaNYL 25 MCG/PATCH TD SCH (15:00)
--- NOTE | 2024-04-11 15:15 | NUR ---
PT HAS FAMILY VISITING BEDSIDE AT THIS TIME.
[2024-04-11] MEDS ORDERED: TAZOBACTAM IV SCH (15:30)
[2024-04-11] MEDS ORDERED: SODIUM CHLORIDE 0.9% IV SCH (15:30)
[2024-04-11] MEDS ORDERED: [UNRECOGNIZED DRUG - OTHER] IV SCH (15:30)
--- NOTE | 2024-04-11 16:10 | NUR ---
TUBE FEED STARTED AT 65ML/HR, FIRST RESIDULE CHECK WILL BE AT 1999. PRN PERCOCET GIVEN FOR BACK PAIN OF A 7 ON A 0-10 PAIN SCALE. BACK WOUND CARE COMPLETED ORDERED.
[2024-04-11 18:46] VITALS: BP 95/43
[2024-04-12] VITALS (14 sets, daily range): BP systolic 90–129; BP diastolic 42–62
[2024-04-12 05:21] LABS: ALBUMIN 2.5 g/dL (3.2-5.0); BILIRUBIN, TOTAL 0.2 mg/dL (0.2-1.3); CREATININE 1.1 mg/dL (0.7-1.3); POTASSIUM 4.8 mmol/l (3.5-5.1); TOTAL PROTEIN 5.9 g/dL (6.3-8.2)
--- NOTE | 2024-04-12 05:29 | NUR ---
CARE TEAM PRESENTS TO PATIENT'S ROOM TO TRANSFER PATIENT ONTO A SPECIALTY BED WITH AIR MATTRESS. PATIENT REFUSES STATING IT WILL CAUSE BACK DISCOMFORT. EDUCATED ON THE IMPORTANCE OF THE AIR MATTRESS, WOUND HEALING AND SKIN INTEGRITY. PATIENT CONTINUES TO DECLINE.
[2024-04-12 05:48] LABS: BASO% 0.2 % (0-3); EOS% 1.2 % (0-8); HEMATOCRIT 23.7 % (39.0-50.0); IMMATURE GRANULOCYTES 0.5 % (0.0-5.0); MEAN CORPUSCULAR HGB 28.3 pG CALC (26.0-32.0); MEAN CORPUSCULAR HGB CONC 29.5 g/dL CAL (32.0-36.0); MONO% 4.9 % (2-13); NEUT# 12.74 thou/uL (1.82-7.42); NEUT% 80.2 % (42-76); RED BLOOD COUNT 2.47 mill/uL (4.70-6.10); RED CELL DISTRI WIDTH 15.2 % (11.5-15.5)
[2024-04-12] MEDS ORDERED: SODIUM CHLORIDE 0.9% 500 ML IV ONE (08:20)
--- NOTE | 2024-04-12 10:45 | NUR ---
VERBAL CONSENT TO TRANSFUSE PRBCs GIVEN BY PATIENT. RYANN SANCHEZ CONTACT AND PROVIDED VERBAL CONSENT VIA TELEPHONE.
[2024-04-12] MEDS ORDERED: HYDROmorphone HCL 2 MG/AMP IV PRN (15:25)
--- NOTE | 2024-04-12 16:11 | NUR ---
PATIENT DRESSING CHANGED PER ORDER. TRANSFERRED TO AIR MATTRESS. COLOSTOMY EMPTIED 200 mL OF LIGHT BROWN STOOL. PATIENT C/O PAIN OF A 10, MEDICATED ACCORDING TO EMAR BED IN LOW POSITION AND CALL LIGHT NEXT TO R HAND. WILL CONTINUE WITH PLAN OF CARE.
[2024-04-12 17:56] LABS: URINE BILIRUBIN - DIPSTICK Negative (NEGATIVE); URINE BLOOD DIPSTICK Large (NEGATIVE); URINE CLARITY Cloudy; URINE GLUCOSE - DIPSTICK Negative (NEGATIVE); URINE KETONE Negative (NEGATIVE); URINE LEUK ESTERASE Small (Negative); URINE PH 8.5 (4.5-8.0); URINE PROTEIN - DIPSTICK 100 mg/dL (NEG-TRACE); URINE SPECIFIC GRAVITY 1.015; URINE UROBILINOGEN - DIPSTICK 0.2 E.U./dL (0.2)
[2024-04-12 17:57] LABS: URINE COLOR Yellow; URINE NITRITE - DIPSTICK Positive (Negative)
[2024-04-12 18:01] LABS: URINE RBC 50-100 RBC/hpf (0-5)
[2024-04-12 18:02] LABS: URINE BACTERIA FEW hpf
--- NOTE | 2024-04-12 20:01 | NUR ---
REPORT RECIEVED FROM [facility] NURSE. PT RESTING IN BED AT THIS TIME. [place] PUMP NOTED, WITH JEVITY GOING AT 65 ML/HR. PLACEMENT OF PEG TUBE CHECKED AT THIS TIME. TUBE REMAINS IN PLACE AT THIS TIME. PT DENEIES ANY NEEDS AT THIS TIME. PT REMAINS ON 2L NC AT THIS TIME. COLOSTOMY NOTED TO THE (R) ABDOMEN, SMALL SOFT BM IN BAG. CRESPO IN PLACE, PRODUCING NEHEMIAH COLORED URINE. NO SIGNS OR SYMPTOMS OF DISTRESS NOTED AT THIS TIME. PT IS A&O X3. PT REMAINS ON AIR MATRESS AT THIS TIME. PT HAS A #22 TO THE (R) FA, FLUSHED AT THIS TIME. PT EDUCATED ON MEDICATION SCHEDULE AND POC. CALL LIGHT IN REACH, AND SAFETY PRECAUTIONS IN PLACE.
--- NOTE | 2024-04-12 20:30 | NUR ---
GASTRIC RESIDUAL CHECKED AT THIS TIME. 30 CC NOTED. COLOSTOMY EMPTIED AT THIS TIME, 100 ML OF WATERY BROWN STOOL, WITH MINIMAL FORMED STOOL IN BAG. PEG TUBE FLUSHED WITH 200 ML AT THIS TIME. PT TOLERATED PROCEDURE WELL, WITH NO COMPLAINTS VOICED. CALL LIGHT IN REACH, AND SAFETY PRECAUTIONS IN PLACE.
[2024-04-13] VITALS (10 sets, daily range): BP systolic 93–111; BP diastolic 38–56
--- NOTE | 2024-04-13 00:15 | NUR ---
PT RESTING IN BED WITH EYES CLOSED. RESPIRATIONS ARE EVEN AND UNLABORED, PT IS EASILY AROUSABLE. PT ABT REMAINS INFUSING. GASTRIC RESIDUAL 0 AT THIS TIME. PT DENIES ANY NEEDS AT THIS TIME. CALL LIGHT IN REACH, AND SAFETY PRECAUTIONS IN PLACE.
--- NOTE | 2024-04-13 04:25 | NUR ---
LAB IN ROOM WITH PT, OBTAINING MORNING LABS. ED CALLED TO NOTIFY THIS CITY CLERK THAT PT HR > 120. PT STATES THAT HE IS IN PAIN, WILL FOLLOW UP WITH EMAR. 8390 - ED CALLED TO INFORM THIS WIRTER THAT PT CONVERTED TO A-FIB. EKG ORDER OBTAINED, PERFORMED BY RT. EKG SHOWED NORMAL SINUS RHYTHM AT THIS TIME. HR WITHIN NORMAL LIMITS. NO S&S OF DISTRESS AT THIS TIME. TELE MONITOR IN PLACE. NC IN PLACE @ 2L. PT STATES "LEAVE ME ALONE SO I CAN REST". CALL LIGHT IN REACH, AND SAFETY PRECAUTIONS IN PLACE.
[2024-04-13 04:44] LABS: BASO% 0.1 % (0-3); EOS% 1.1 % (0-8); HEMATOCRIT 26.6 % (39.0-50.0); HEMOGLOBIN 8.3 g/dl (14.0-18.0); IMMATURE GRANULOCYTES 0.6 % (0.0-5.0); MEAN CORPUSCULAR HGB 29.3 pG CALC (26.0-32.0); MEAN CORPUSCULAR HGB CONC 31.2 g/dL CAL (32.0-36.0); MONO% 4.1 % (2-13); NEUT# 14.89 thou/uL (1.82-7.42); NEUT% 83.1 % (42-76); RED BLOOD COUNT 2.83 mill/uL (4.70-6.10); RED CELL DISTRI WIDTH 15.1 % (11.5-15.5)
[2024-04-13 04:56] LABS: ALBUMIN 2.4 g/dL (3.2-5.0); BILIRUBIN, TOTAL 0.2 mg/dL (0.2-1.3); MAGNESIUM 1.9 mg/dL (1.6-2.3); POTASSIUM 4.5 mmol/l (3.5-5.1)
--- NOTE | 2024-04-13 07:30 | NUR ---
REPORT RECEIVED FROM CHANNEL CEMENTER OUTSOLE MACHINE NURSE. PATIENT IS RESTING IN BED, DENIES ANY PAIN. A&0 TO PERSON AND PLACE, UNSURE OF TIME/ SITUATION. ON 2L NC, VS WNL, NSR ON TELE MONITOR. CRESPO AND ILEOSTOMY IN PLACE. ALL NEEDS ADDRESSED AT THIS TIME. CALL LIGHT WITHIN REACH.
[2024-04-13] MEDS ORDERED: MORPHINE SULFATE 4 MG/ML VIAL IV PRN (10:25)
[2024-04-13] MEDS ORDERED: MORPHINE SULFATE 4 MG/ML VIAL IV SCH (12:00)
--- NOTE | 2024-04-13 12:00 | NUR ---
Patient is resting in bed, c/o generalized pain. Family at bedside. Patient is A&O to self, place. Forgetful of time/ situation. On 2L NC and tolerating. Espinosa and ileostomy in place. VS WNL, NSR on tele monitor. All needs addressed at this time. Call light within reach.
--- NOTE | 2024-04-13 16:00 | NUR ---
Patient is resting in bed, denies any pain. On 2L NC, tube feed running via PEG tube, sarkar and ileostomy in place, VS WNL, NSR on tele monitor. Dressing change to back and coccyx done. Repositioned. All needs addressed at this time, call light within reach.
--- NOTE | 2024-04-13 20:00 | NUR ---
BEDSIDE SHIFT REPORT COMPLETED. RESTING IN BED. CALL LIGHT IN REACH. NO C/O AT CURRENT TIME.
[2024-04-14] VITALS (8 sets, daily range): BP systolic 83–104; BP diastolic 36–54
--- NOTE | 2024-04-14 | NUR ---
RESTING IN BED, ALERT ORIENTED. MEDICATED WITH SCHEDULED MORPHINE. ILLEOSTOMY EMPTIED. BROWN LIQUID STOOL. HAS WET PRODUCTIVE COUGH. TURNED AND REPOSITIONED. SKIN IN POOR CONDITION. JEVITY HELD DUE TO LARGE AMOUNT OF RESIDUAL.
--- NOTE | 2024-04-14 02:30 | NUR ---
GOOD RESULTS FROM MOPRHINE. LOOKS COMFORTABLE. SEEMS TO BE RESTING WELL. JEVITY CONTINUED TO BE HELD. RESIDUAL CONTINUES TO BE OVER 100..
--- NOTE | 2024-04-14 05:00 | NUR ---
MEDICATED WITH SCHEDULED MORPHINE ORDERED. JEVITY RESTARTED VIA PEG. NO RESIDUAL NOTED. TURNED AND REPOSITIONED. MOUTH CARE PROVIDED.
--- NOTE | 2024-04-14 06:15 | NUR ---
PRN PERCOCET GIVEN VIA PEG TUBE FOR C/O PAIN.
[2024-04-14 07:19] LABS: BASO% 0.2 % (0-3); EOS% 1.6 % (0-8); HEMATOCRIT 26.2 % (39.0-50.0); HEMOGLOBIN 7.8 g/dl (14.0-18.0); LYMPH% 13.7 % (15-41); MEAN CELL VOLUME 95.3 fL CALC (80.0-100.0); MEAN CORPUSCULAR HGB 28.4 pG CALC (26.0-32.0); MEAN CORPUSCULAR HGB CONC 29.8 g/dL CAL (32.0-36.0); MONO% 5.3 % (2-13); NEUT# 13.56 thou/uL (1.82-7.42); NEUT% 78.2 % (42-76); RED BLOOD COUNT 2.75 mill/uL (4.70-6.10); RED CELL DISTRI WIDTH 15.1 % (11.5-15.5)
[2024-04-14 07:32] LABS: ALBUMIN 2.3 g/dL (3.2-5.0); MAGNESIUM 1.9 mg/dL (1.6-2.3); POTASSIUM 4.8 mmol/l (3.5-5.1); TOTAL PROTEIN 5.8 g/dL (6.3-8.2)
--- NOTE | 2024-04-14 08:00 | NUR ---
Patient AA0. Denies any pain. X2 visitors in room speaking with patient. Patient repositioned . Vital signs stable. Comfort and safety measures in place.
[2024-04-14 09:01] LABS: BILIRUBIN, TOTAL 0.3 mg/dL (0.2-1.3)
--- NOTE | 2024-04-14 12:00 | NUR ---
Patient awake and oriented. Tolerating peg tube feeds. Vital sigsn stable . Patient repositioned. Comfort and safety measures in place.
[2024-04-14] MEDS ORDERED: SODIUM CHLORIDE 0.9% 100 ML IV ONE ×2 (12:36)
--- NOTE | 2024-04-14 18:47 | NUR ---
New fentanyl patch placed to right shoulder blade . Fentanyl patch to chest removed that was dated 04/11 . Patient repositioned. Mouth care provided. Dressings placed to multiple wounds on back. Comfort and safety measures in place.
--- NOTE | 2024-04-14 20:00 | NUR ---
BEDSIDE SHIFT REPORT COMPLETED. OXYGEN VIA NASAL CANNULA 2L. CALL LIGHT IN REACH.
[2024-04-15] VITALS (26 sets, daily range): BP systolic 60–117; BP diastolic 37–57
--- NOTE | 2024-04-15 | NUR ---
COLOSTOMY LEAKING, CHANGED WAFER AND BAG. UNABLE TO FIND PROPER SIZE OF COLOSTOMY BAG. USED 2 3/4 WAFER AND BAG. WILL ALERT CENTRAL SUPPLY IN AM OF NEED FOR SMALLER WAFER AND BAGS. TURNED AND REPOSITIONED IN BED. IV MORPHINE GIVEN PER ORDER. MOUTH CARE PROVIDED. DRESSING AROUND PEG SITE CHANGED. CALL LIGHT IN REACH.
--- NOTE | 2024-04-15 03:00 | NUR ---
PATIENT YELLING OUT HELP. SLIGHTLY ANXIOUS, HASNT SLEPT WELL DURING NIGHT. GAVE PRN ATIVAN AND PERCOCET. PEG FLUSHES WELL. 20CC RESIDUAL NOTED. JEVITY 1.5 INFUSING IN AT 65CC/HR. STOOL IN COLOSTOMY IS LIQUID, NOTHING SOLID. WILL NOTIFY MD. SKIN GETTING SLIGHTLY IRRITATED AROUND WAFER DUE TO CHANGING SO FREQUENTLY AND LEAKAGE.
[2024-04-15 05:00] LABS: BASO% 0.2 % (0-3); EOS% 2.6 % (0-8); HEMATOCRIT 26.5 % (39.0-50.0); HEMOGLOBIN 7.9 g/dl (14.0-18.0); IMMATURE GRANULOCYTES 0.8 % (0.0-5.0); LYMPH% 9.6 % (15-41); MEAN CELL VOLUME 96.4 fL CALC (80.0-100.0); MEAN CORPUSCULAR HGB 28.7 pG CALC (26.0-32.0); MEAN CORPUSCULAR HGB CONC 29.8 g/dL CAL (32.0-36.0); MONO% 4.8 % (2-13); NEUT# 12.78 thou/uL (1.82-7.42); RED BLOOD COUNT 2.75 mill/uL (4.70-6.10); RED CELL DISTRI WIDTH 15.2 % (11.5-15.5)
--- NOTE | 2024-04-15 05:05 | NUR ---
CONTINUES TO HAVE SMALL AMOUNT OF LEAKAGE OF STOOL UNDER WAFER. PATIENT RESTING MUCH BETTER SINCE GIVEN PRN MEDICATIONS. STOMA CONTINUES TO LEAK UNDER WAFER. CHANGED WAFER AND BAG AGAIN. SKIN RED AND IRRITATED AROUND STOMA.
[2024-04-15 05:23] LABS: ALBUMIN 2.3 g/dL (3.2-5.0); BILIRUBIN, TOTAL 0.2 mg/dL (0.2-1.3); POTASSIUM 4.7 mmol/l (3.5-5.1); TOTAL PROTEIN 5.8 g/dL (6.3-8.2)
--- NOTE | 2024-04-15 08:10 | NUR ---
PATIENT A/O X3; ON 2L OF ; BREATHING UNLABORED AND EVEN; DENIED ANY PAIN; DENIED ANY N/D/V AT THIS TIME; CRESPO BAG WORKING WITH NO ISSUES; IV SITE CLEAN AND INTACT; TELE LEADS ATTACHED AND WORKING WITH NOISSUES; COMPLETED A BED BATH AND WASHED HIS HAIR; AND LINEN CHANGE; FEEDING TUBE WORKING WITH NO ISSUES; PATIENT ONLY WANTED A KLENEX TO CLEAN NOSE; MEDICATION REVIWWED; CALL LIGHT WITHIN REACH,VERBALIZED UNDERSTANDINGH ON HOW TO USE, PEROSNAL ITEMS WITHIN REACH, BED INLOWET POSTION
--- NOTE | 2024-04-15 09:00 | NUR ---
COMPLETED ALL WOUND CARE ON COCCYX, MIDSPINAL AND BUTTCOCKS; CHANGED COLSTOMY BAG AND WAFFER TO CORRECT SIZE
--- NOTE | 2024-04-15 12:55 | NUR ---
PATIENT RESTING IN BED; ON 2L OF O2; BREATHING UNLABORED; PRODUCTIVE COUGH; DNEIED ANY N/D/V AT THIS TIME; DENIED ANY PAIN AT THIS TIME; TELE LEADS ARE ATTACHED AND WORKING; TURNED PATEINT ON RIGHT SIDE; FEEDING TUBE WORKING WITH NOISSUES; FOELY BAG WORKING WITH NO ISSUES WITH CLEAR YELLOW URINE OUTPUT; MEDICATION REVIEWED; PATIENT SITTING SEMI AGARWAL IN POSTION IN BED; CALL LIGHT WITHIN REACH, PERSONAL ITEMS WITHIN REACH, BED IN LOWEST POSTION
--- NOTE | 2024-04-15 15:56 | NUR ---
charito resting in bed; on 2l of ; breathing unlabored and even; sarkar bag working with yellow output; feeding tube working with noissues; colostomy bag working with no issues or leaking; tele leads are attached and working with no issues; denied any pain; denied any n/d/v; patient still Q2 turn; on air mattress; medication reviwed; no s/s of distress at this time; call light within reach,verbalized understanding on how to use, personal items within reach, bed in lowest postion
--- NOTE | 2024-04-15 17:09 | NUR ---
PATIENT RUNNING AGIB SUSTAINING IN THE 140-150S CALL[address] DR. SANTANA ,VERBAL ORDER OF DIGOXIN 0.25 VIA IV ONE TIME DOSE, FAXED TO PHARMACY
[2024-04-15] MEDS ORDERED: DIGOXIN 0.5 MG/2 ML AMP IV SCH (17:15)
[2024-04-15] MEDS ORDERED: MORPHINE SULFATE 4 MG/ML VIAL IV SCH (18:00)
--- NOTE | 2024-04-15 18:03 | NUR ---
PATIENT HEARTRATE BETWEEN 103-127. DIGIXON 0.25MG GIVEN PER MD ORDER. PATIENT TOLERATED WELL. WILL CONTINUE TO MONITOR.
--- NOTE | 2024-04-15 18:45 | NUR ---
PATIENT HEART RATE WENT BACK INTO THE 150S AFETR THE DOSE OF DIGOXIN AD FROM [facility], TEXTED HERIBERTO ANEL AND DR. CRUZ TO INFORM PATIENT REGARDING HEART RATE, DR. ABDUL AND HERIBERTO AGREED TO MOVE PATIENT TO ICU, GAVE OVER THE [facility] REPORT TO JOEL IN ICU, TRANSFERED PATIENT TO ICU IN BED, WITH PERSONAL ITEMS; MEDICATIONS WAS GIVEN TO ICU, PATIENT TOLERATED TRANSFER STABLE; PATEINT MOVED IN TO ICU ROOM 8; WHEN IN ICU PATIENT WAS STABLE, TELE LEADS AND VITALS WAS ATTACHED; CRESPO BAG WORKING WITH NO ISSUES; COLOSTOMY BAG WORKING WITH NO ISSUES; NO COMPLAINTS AT THIS TIME.
--- NOTE | 2024-04-15 19:00 | NUR ---
1845 pt arrived to icu by hospital bed. report received over the phone. pt 's HR 140's to [address] terrell notified and order received for amiodarone gtt.
[2024-04-15] MEDS ORDERED: amioDARONE HCl 450 MG in SODIUM CHLORIDE 250 ML IV PRN (19:05)
--- NOTE | 2024-04-15 19:08 | NUR ---
phone call placed to dr. terrell regarding pt's low bp. order received for 1l ns bolus and then ns 100ml/h after. dr. terrell stated he would contact family regarding pt's condition.
[2024-04-15] MEDS ORDERED: SODIUM CHLORIDE 0.9% 250 ML IV PRN (19:10)
--- NOTE | 2024-04-15 19:15 | NUR ---
poorly responsive. o2 cont per nc. quality assurance monitor final shows a fib. saline lock in place rfa. jevity feeding infusing well per peg tube. sarkar cath in place. urine cloudy yellow. multi decubs on body. see pics. requires total care for all needs. air mattress, fall precautions & bed alarm conts.
[2024-04-15] MEDS ORDERED: SODIUM CHLORIDE 0.9% 1,000 ML IV PRN ×2 (19:40→20:40)
--- NOTE | 2024-04-15 22:45 | NUR ---
ileostomy bag leaking-changed. pt does not want to be repositioned. explained to pt about his decubs & need for repositioning. pt repositioned.
[2024-04-16] VITALS (57 sets, daily range): BP systolic 69–116; BP diastolic 40–59
--- NOTE | 2024-04-16 00:01 | NUR ---
eyes closed. no apparent distress. case monitor shows a fib.
--- NOTE | 2024-04-16 01:06 | NUR ---
patient monitor shows sinus rhythm pacs hr 80's.
--- NOTE | 2024-04-16 04:50 | NUR ---
lab here. blood drawn.
[2024-04-16 05:07] LABS: BASO% 0.2 % (0-3); EOS% 2.3 % (0-8); HEMATOCRIT 25.3 % (39.0-50.0); HEMOGLOBIN 7.5 g/dl (14.0-18.0); IMMATURE GRANULOCYTES 0.7 % (0.0-5.0); MEAN CELL VOLUME 97.7 fL CALC (80.0-100.0); MEAN CORPUSCULAR HGB CONC 29.6 g/dL CAL (32.0-36.0); MONO% 5.5 % (2-13); NEUT# 11.39 thou/uL (1.82-7.42); NEUT% 78.3 % (42-76); RED BLOOD COUNT 2.59 mill/uL (4.70-6.10); RED CELL DISTRI WIDTH 15.3 % (11.5-15.5)
[2024-04-16 05:18] LABS: ALBUMIN 2.1 g/dL (3.2-5.0); BILIRUBIN, TOTAL 0.2 mg/dL (0.2-1.3); CREATININE 0.8 mg/dL (0.7-1.3); MAGNESIUM 1.9 mg/dL (1.6-2.3); POTASSIUM 4.3 mmol/l (3.5-5.1); TOTAL PROTEIN 5.5 g/dL (6.3-8.2)
--- NOTE | 2024-04-16 06:00 | NUR ---
iv lt hand out. #20 rac x2 attempts per fito lauren
--- NOTE | 2024-04-16 07:30 | NUR ---
REPORT RECEIVED FROM NIGHT RN. PT LYING IN BED, POSITIONED WITH PILLOWS. PT A/O X3. LUNGS DIMINISHED; ON RA. NO COUGH OR SOB NOTED. PT IS NSR 90'S ON MONITOR. BS ACTIVE. TUBE FEED IN PLACE VIA PT'S PEG TUBE. OSTOMY SECURE, NOT LEAKING. CRESPO CATHETER IN PLACE. PULSES WEAK ALL EXTREMETIES. SKIN W/D. MULTIPLE PRESSURE INJURIES PRESENT; REPOSITIONING AT LEAST Q2H FOR COMFORT. PT DENIES ANY PAIN AT THIS TIME. AFEBRILE. CALL LIGHT IN REACH. VSS.
--- NOTE | 2024-04-16 07:39 | NUR ---
DR. ZAVALETA AT BEDSIDE TO ASSESS PT.
--- NOTE | 2024-04-16 07:42 | NUR ---
DR. ZAVALETA WITH PT, AND SPEAKING WITH FAMILY REGARDING PT'S STATUS.
--- NOTE | 2024-04-16 09:34 | NUR ---
PT MEDICATED FOR PAIN AND REPOSITIONED. MOUTH SWABBED FOR COMFORT. CALL LIGHT IN REACH. VSS.
--- NOTE | 2024-04-16 10:24 | NUR ---
PT REQUESTING ADDITIONAL PAIN MEDICATION FOR BREAKTHROUGH PAIN. MEDICATED PER NOV.
--- NOTE | 2024-04-16 12:00 | NUR ---
NO CHANGES TO PT STATUS. REPOSITIONED FOR COMFORT. PT DECLINED ORAL CARE. CALL LIGHT IN REACH. VSS.
--- NOTE | 2024-04-16 13:28 | NUR ---
HOSPICE NURSE AT BEDSIDE TO SPEAK WITH AND ASSESS PT. FAMILY AT BEDSIDE.
--- NOTE | 2024-04-16 15:00 | NUR ---
PT ASLEEP IN BED. NO OTHER CHANGES. VSS.
--- NOTE | 2024-04-16 16:39 | NUR ---
NO CHANGES TO PT STATUS. REPOSITIONED FOR COMFORT. VSS.
--- NOTE | 2024-04-16 18:00 | NUR ---
PT ASLEEP IN BED. GIVEN PAIN MEDICATION PER MAR. REPOSITIONED. VSS.
[2024-04-16] MEDS ORDERED: MORPHINE SULFATE 4 MG/ML VIAL IV SCH (20:00)
--- NOTE | 2024-04-16 20:45 | NUR ---
PT MEDICATED FOR TRANSPORT TO HOSPICE HOUSE VIA [facility]. PT BELONGING SENT WITH PT, IV SITE WNL INTACTED, 2L O2 FOR SUPPORT. D/C PACKET GIVEN TO [facility]. PTS SON NOTIFIED OF ETA TO HOSPICE HOUSE. VSS.
== END 2024-04-16 20:45 | disposition hospice, inpatient (51) | DRG 689 ==
LOC: MS2 11:03 → ICU 04-15 18:45
PROVIDERS: Nurse Practitioner Family; Student in an Organized Health Care Education/Training Program; ADMIT Internal Medicine; ATTEND Internal Medicine
PROC: 0T2BX0Z Change Drainage Device in Bladder, External Approach (ICD-10-PCS; principal; 2024-04-11)
PROC: 30233N1 Transfusion of Nonautologous Red Blood Cells into Peripheral Vein, Percutaneous Approach (ICD-10-PCS; 2024-04-12)
DX: N39.0 Urinary tract infection, site not specified (principal); E43 Unspecified severe protein-calorie malnutrition; J18.9 Pneumonia, unspecified organism; Z16.24 Resistance to multiple antibiotics; R64 Cachexia; Z68.1 Body mass index [BMI] 19.9 or less, adult; B96.5 Pseudomonas (aeruginosa) (mallei) (pseudomallei) as the cause of diseases classified elsewhere; M35.3 Polymyalgia rheumatica; K59.09 Other constipation; N40.0 Benign prostatic hyperplasia without lower urinary tract symptoms; L89.150 Pressure ulcer of sacral region, unstageable; I48.91 Unspecified atrial fibrillation; N18.9 Chronic kidney disease, unspecified; I50.9 Heart failure, unspecified; R62.7 Adult failure to thrive; L89.126 Pressure-induced deep tissue damage of left upper back; L89.110 Pressure ulcer of right upper back, unstageable; D64.9 Anemia, unspecified; R54 Age-related physical debility; Y95 Nosocomial condition; Z51.5 Encounter for palliative care; Z66 Do not resuscitate; Z96.0 Presence of urogenital implants; Z93.1 Gastrostomy status; Z90.49 Acquired absence of other specified parts of digestive tract; Z92.21 Personal history of antineoplastic chemotherapy; Z85.038 Personal history of other malignant neoplasm of large intestine; Z87.442 Personal history of urinary calculi
CPT/HCPCS: J0282; J0695; J1160; P9016